=== PATIENT | female | born 1965 | race Caucasian/White ===

== ENCOUNTER 2019-12-11 07:04 | Outpatient (REF) | payer MEDICARE, MEDICAID, SELFPAY ==
[2019-12-11 08:17] LABS: Alanine Aminotransferase 21 U/L (0-31); Albumin Level 4.1 g/dL (3.5-5.0); Alkaline Phosphatase 55 U/L (39-117); Aspartate Amino Transferase 24 U/L (5-31); Bilirubin Direct 0.2 mg/dL (0.0-0.5); Bilirubin Total 0.4 mg/dL (0.0-1.0); Cholesterol 237 mg/dL; HDL Cholesterol 76 mg/dL; LDL Cholesterol Calculated 144 mg/dl; Total Protein 7.3 g/dL (6.5-8.0); Triglycerides 87 mg/dL
== END 2019-12-11 07:05 | disposition home or self-care (01) ==
LOC: HO.LAB 07:04
DX: E78.5 Hyperlipidemia, unspecified (principal)
CPT/HCPCS: 80061; 80076

== ENCOUNTER → 2020-04-18 12:40 | Outpatient (BNVA) | payer MEDICARE, MEDICAID, SELFPAY | PROVIDERS: PCP Internal Medicine; Visit Provider Obstetrics & Gynecology | DX: N95.1 Menopausal and female climacteric states (principal) | CPT/HCPCS: 99202 ==

== ENCOUNTER 2020-07-08 06:51 | Outpatient (REF) | payer MEDICARE, MEDICAID, SELFPAY ==
[2020-07-08 07:39] LABS: MANUAL DIFF FLAG NO
[2020-07-08 07:48] LABS: Basophils Percent Auto 0.5 % (0-2); Eosinophils Absolute Auto 0.2 X10*3/uL (0.0-0.4); Eosinophils Percent Auto 2.8 % (0-4); Hematocrit 38.4 % (37-47); Hemoglobin 12.8 g/dl (12.0-16.0); Imm Gran Abs Auto 0.02 X10*3/uL (0.00-0.03); Imm Gran Pct Auto 0.3 % (0.0-0.4); Lymphocytes Absolute Auto 1.6 X10*3/uL (1.2-4.9); Lymphocytes Percent Auto 25.3 % (20-40); Mean Corpuscular HGB Conc 33.3 g/dl (31.0-35.0); Mean Corpuscular Hemoglobin 30.5 pg (27.0-33.0); Mean Corpuscular Volume 91.6 fL (80-98); Mean Platelet Volume 11.5 fL (9.4-12.3); Monocytes Absolute Auto 0.4 X10*3/uL (0.1-1.2); Monocytes Percent Auto 5.6 % (2-11); Neutrophils Absolute Auto 4.3 X10*3/uL (2.0-8.3); Neutrophils Percent Auto 65.5 % (45-73); Platelet Count 227 X10*3/uL (160-400); Red Blood Count 4.19 X10*6/uL (4.20-5.50); Red Cell Distribution Width 12.9 % (11.0-16.0); White Blood Count 6.5 X10*3/uL (4.8-10.8)
[2020-07-08 08:09] LABS: Alanine Aminotransferase 23 U/L (0-31); Albumin Level 4.2 g/dL (3.5-5.0); Alkaline Phosphatase 61 U/L (39-117); Anion Gap 14 (12-20); Aspartate Amino Transferase 24 U/L (5-31); Bilirubin Total 0.6 mg/dL (0.0-1.0); Blood Urea Nitrogen 20 mg/dL (9-16); Calcium 9.2 mg/dL (8.4-10.2); Carbon Dioxide 24 mmol/L (22-29); Chloride 106 mmol/L (96-108); Cholesterol 177 mg/dL; Estimated Glomerular Filt Rate > 60; Glucose Fasting 97 mg/dL (60-99); HDL Cholesterol 85 mg/dL; LDL Cholesterol Calculated 79 mg/dl; Potassium 3.9 mmol/L (3.3-5.1); Sodium 140 mmol/L (135-145); Total Protein 7.1 g/dL (6.5-8.0); Triglycerides 67 mg/dL
[2020-07-08 08:16] LABS: Vitamin D 25-OH Total 52.5 ng/mL (>30)
[2020-07-08 08:21] LABS: Thyroid Stimulating Hormone 0.79 uIU/mL (0.32-4.0)
== END 2020-07-08 06:52 | disposition home or self-care (01) ==
LOC: HO.LAB 06:51
PROVIDERS: Absent Provider Internal Medicine Addiction Medicine; PCP Internal Medicine; Visit Provider Internal Medicine
DX: Z00.00 Encounter for general adult medical examination without abnormal findings (principal); M79.7 Fibromyalgia; E03.9 Hypothyroidism, unspecified; E11.9 Type 2 diabetes mellitus without complications
CPT/HCPCS: 36415; 80053; 80061; 82306; 84443; 85025

== ENCOUNTER 2020-08-19 08:15 | Outpatient (REF) | payer MEDICARE, MEDICAID, SELFPAY ==
[2020-08-24 21:06] LABS: HPV mRNA E6/E7 rflx Not Detected (Not Detected)
== END 2020-08-19 08:16 | disposition home or self-care (01) ==
LOC: HO.LAB 08:15
PROVIDERS: PCP Internal Medicine; Visit Provider Obstetrics & Gynecology
DX: Z01.419 Encounter for gynecological examination (general) (routine) without abnormal findings (principal); N95.1 Menopausal and female climacteric states; Z87.891 Personal history of nicotine dependence
CPT/HCPCS: 87624; 88142

== ENCOUNTER → 2021-05-30 07:43 | Outpatient (BNVA) | payer MEDICARE, MEDICAID, SELFPAY | PROVIDERS: PCP Internal Medicine; Visit Provider Internal Medicine Endocrinology, Diabetes & Metabolism | DX: E66.9 Obesity, unspecified (principal); Z68.30 Body mass index [BMI] 30.0-30.9, adult | CPT/HCPCS: 99202 ==

== ENCOUNTER 2021-06-02 07:22 | Outpatient (REF) | payer MEDICARE, MEDICAID, SELFPAY ==
[2021-06-02 08:28] LABS: Anion Gap 14 (12-20); Blood Urea Nitrogen 17 mg/dL (9-16); Calcium 9.6 mg/dL (8.4-10.2); Carbon Dioxide 25 mmol/L (22-29); Chloride 103 mmol/L (96-108); Cholesterol 160 mg/dL; Estimated Glomerular Filt Rate > 60; Glucose Random 86 mg/dL (60-115); HDL Cholesterol 71 mg/dL; LDL Cholesterol Calculated 68 mg/dl; Potassium 4.1 mmol/L (3.3-5.1); Sodium 138 mmol/L (135-145); Triglycerides 105 mg/dL
[2021-06-02 08:52] LABS: Free T4 (Free Thyroxine) 1.03 ng/dL (0.71-1.85); Thyroid Stimulating Hormone 1.39 uIU/mL (0.32-4.0)
== END 2021-06-02 07:23 | disposition home or self-care (01) ==
LOC: HO.LAB 07:22
PROVIDERS: PCP Internal Medicine; Visit Provider Internal Medicine Endocrinology, Diabetes & Metabolism
DX: Z00.00 Encounter for general adult medical examination without abnormal findings (principal); E66.9 Obesity, unspecified
CPT/HCPCS: 36415; 80048; 80061; 84439; 84443

== ENCOUNTER → 2021-09-26 08:47 | Outpatient (BNVA) | payer MEDICARE, MEDICAID, SELFPAY | PROVIDERS: PCP Internal Medicine; Visit Provider Internal Medicine Endocrinology, Diabetes & Metabolism | DX: E66.9 Obesity, unspecified (principal) | CPT/HCPCS: 99212 ==

== ENCOUNTER 2022-05-16 08:27 | Outpatient (REF) | payer MEDICARE, MEDICAID, SELFPAY ==
[2022-05-16 10:03] LABS: Free T4 (Free Thyroxine) 1.14 ng/dL (0.71-1.85); Thyroid Stimulating Hormone 1.33 uIU/mL (0.32-4.0)
[2022-05-18 03:34] LABS: Triiodothyronine T3 Free 3.7 pg/mL (2.3-4.2)
== END 2022-05-16 08:28 | disposition home or self-care (01) ==
LOC: HO.LAB 08:27
PROVIDERS: PCP Internal Medicine; Visit Provider Internal Medicine
DX: E03.9 Hypothyroidism, unspecified (principal)
CPT/HCPCS: 36415; 84439; 84443; 84481

== ENCOUNTER 2022-11-02 08:40 | Outpatient (AMB) | payer MEDICARE, MEDICAID, SELFPAY ==
[2022-11-02 08:41] VITALS: BP 152/90; PULSE 85; BMI 32.1
--- NOTE | 2022-11-02 08:41 | MHC.PC.OV ---
Vital Signs 11/02/22 08:41 Height 5 ft 4 in Weight 187 lb BMI 32.1 BP 152/90 H Blood Pressure Location Lt brachial Position Sitting Pulse 85 Pulse Source Pulse Oximeter Oxygen Delivery Method Room Air Intake Visit Reasons: 6 month f/u Allergies Clindamycin HCl Allergy (Unknown, Uncoded 11/02/22 08:42) unknown dust Allergy (Unknown, Uncoded 11/02/22 08:42) unknown Medication List - Last Reconciled 11/02/22 by Jay Jarquin MD aspirin 81 mg PO DAILY atorvastatin 20 mg PO DAILY estradiol 0.5 mg PO DAILY hydrochlorothiazide 25 mg PO DAILY levothyroxine (Synthroid) 25 mcg PO DAILY metoprolol succinate ER 50 mg PO DAILY oxycodone 10 mg PO BID PRN oxycodone ER 20 mg PO Q12H Tobacco use date assessed: 08/17/22 Dental Screening Dental Screen Date: 11/02/22 Did you have a dental visit in the last 12 months?: Yes Did you have a dental problem in the last 6 months where you did not have access to dental care?: No Was dental information given to patient?: Patient has dentist HPI 6 month f/u HPI Details htn hyperlipidemia and chronic back pain; still overly obsessed with her weight PFSH Medical History Menopause Obesity Hyperlipidemia High cholesterol High blood pressure Fibromyalgia Back pain Surgical History No pertinent past surgical history Family History Father No problems noted. Mother No problems noted. Social History Housing: Condominium Alcohol intake: never Patient Tobacco Use Status: Former Tobacco user Tobacco use type: Cigarette e-Cigarette/Vaping Use: Never Used Second Hand Smoke Exposure: No service: No Current occupational status: disabled Gender identity: Female Cognitive needs: No Hearing needs: No Vision needs: No Questionnaire PHQ-9 Over the last 2 weeks, how often have you been bothered by any of the following problems? 1. Little interest or pleasure in doing things: not at all 2. Feeling down, depressed, or hopeless: not at all 3. Trouble falling or staying asleep, or sleeping too much: not at all 4. Feeling tired or having little energy: not at all 5. Poor appetite or overeating: not at all 6. Feeling bad about yourself - or that you are a failure or have let yourself or your family down: not at all 7. Trouble concentrating on things, such as reading the newspaper or watching television: not at all 8. Moving or speaking so slowly that other people could have noticed. Or the opposite - being so fidgety or restless that you have been moving around a lot more than usual: not at all 9. Thoughts that you would be better off or of hurting yourself in some way: not at all Total score: 0 Depression Screening Interpretation: Negative Source: Developed by Drs. Madhu Spear, Cyndi Lizarraga, Robby Bonilla and colleagues, with an educational tim from [employer]. Thrive Questionnaire Date Thrive assessed: 05/04/22 AUDIT C Alcohol Use Questionnaire (AUDIT-C) 1. How often do you have a drink containing alcohol?: Never Total Score: 0 Score Reviewed/Action Taken: Yes ARIANNE-7 AMB Questionnaire ARIANNE-7 Date ARIANNE - 7 assessed: 05/04/22 Source: Developed by Drs. Madhu Spear, Cyndi Lizarraga, Robby Bonilla and colleagues, with an educational tim from [employer]. Review of Systems Const Denies chills, Denies headache(s) and Denies weight loss ENT Denies headache(s) Card Denies chest pain, Denies syncope, Denies irregular heart rhythm and Denies dyspnea Resp Denies chest congestion, Denies cough and Denies dyspnea GI Denies abdominal pain, Denies change in stool character, Denies nausea and Denies vomiting Musc Denies deformity and Denies joint swelling Neuro Denies syncope and Denies headache(s) Physical exam (Primary Care) Vital Signs: Last Vital Signs Pulse 85 11/02/22 08:41 BP 152/90 H 11/02/22 08:41 Oxygen Delivery Method Room Air 11/02/22 08:41 BMI result Body Mass Index 32.1 Tobacco/Smoking Status: Tobacco use Status Tobacco use date assessed 08/17/22 11/02/22 08:46 Patient Tobacco Use Status Former Tobacco user 11/02/22 08:46 Tobacco use type Cigarette 11/02/22 08:46 e-Cigarette/Vaping Use Never Used 11/02/22 08:46 PHQ-9: PHQ-9 Score PHQ-9: Total score 0 11/02/22 08:46 Depression Screening Interpretation: Negative Thrive Assessment: Date of Thrive Assessment Date Thrive assessed 05/04/22 11/02/22 08:46 Const General: cooperative, comfortable, no acute distress and alert Neck Neck: Yes no lymphadenopathy Thyroid: Thyroid normal Resp Effort & Inspection: normal respiratory effort Auscultation: clear to auscultation bilaterally Percussion: percussion normal Cardio Jugular venous distension: no JVD Palpation: normal PMI Rate: regular rate Rhythm: regular rhythm Heart sounds: S1 normal heart sound present and S2 normal heart sound present GI Inspection: Yes normal to inspection Palpation (GI): No hepatosplenomegaly present Skin General skin exam: no rashes or lesions noted Extrem General: Yes no clubbing, cyanosis or edema Assessment and Plan Assessment & Plan (1) Hypertension: Code(s): I10 - Essential (primary) hypertension Plan: same rx (2) Hyperlipidemia: Code(s): E78.5 - Hyperlipidemia, unspecified Plan: stable; do labs (3) Pain management: Code(s): R52 - Pain, unspecified Plan: as per PSP Orders: Orders Complete Blood Count Auto Diff Today D64.9 - Anemia, unspecified Comprehensive [place]. Panel Fast Today N28.9 - Disorder of kidney and ureter, unspecified Lipid Panel Today E78.5 - Hyperlipidemia, unspecified Medications: Discontinued levothyroxine (Synthroid) Discontinued Reason: None 25 mcg PO DAILY 90 tabs 1RF Coding Level of Care Code Est Pt Level 4 (83084) Diagnoses Hypertension I10 Hyperlipidemia E78.5 Pain management R52
== END 2022-11-02 09:07 | disposition home or self-care (01) ==
PROVIDERS: PCP Internal Medicine; Visit Provider Internal Medicine
DX: I10 Essential (primary) hypertension (principal); E78.5 Hyperlipidemia, unspecified; R52 Pain, unspecified
CPT/HCPCS: 99214

== ENCOUNTER 2022-11-20 06:25 | Outpatient (REF) | payer MEDICARE, MEDICAID, SELFPAY ==
[2022-11-20 06:38] LABS: MANUAL DIFF FLAG NO
[2022-11-20 07:24] LABS: Basophils Absolute Auto 0.1 X10*3/uL (0.0-0.2); Basophils Percent Auto 0.9 % (0-2); Eosinophils Absolute Auto 0.2 X10*3/uL (0.0-0.4); Eosinophils Percent Auto 3.7 % (0-4); Hemoglobin 13.1 g/dl (12.0-16.0); Imm Gran Abs Auto 0.02 X10*3/uL (0.00-0.03); Imm Gran Pct Auto 0.4 % (0.0-0.4); Lymphocytes Absolute Auto 2.3 X10*3/uL (1.2-4.9); Lymphocytes Percent Auto 40.5 % (20-40); Mean Corpuscular HGB Conc 33.6 g/dl (31.0-35.0); Mean Corpuscular Hemoglobin 30.3 pg (27.0-33.0); Mean Corpuscular Volume 90.1 fL (80.0-98.0); Mean Platelet Volume 10.1 fL (9.4-12.3); Monocytes Absolute Auto 0.5 X10*3/uL (0.1-1.2); Monocytes Percent Auto 8.2 % (2-11); Neutrophils Absolute Auto 2.6 x10*3/uL (2.0-8.3); Neutrophils Percent Auto 46.3 % (45-73); Platelet Count 280 X10*3/uL (160-400); Red Blood Count 4.33 X10*6/uL (4.20-5.50); Red Cell Distribution Width 12.9 % (11.0-16.0); White Blood Count 5.6 X10*3/uL (4.8-10.8)
[2022-11-20 07:42] LABS: Alanine Aminotransferase 22 U/L (0-31); Albumin Level 4.4 g/dL (3.5-5.0); Alkaline Phosphatase 64 U/L (39-117); Anion Gap 15 (12-20); Aspartate Amino Transferase 25 U/L (5-31); Bilirubin Total 0.4 mg/dL (0.0-1.0); Blood Urea Nitrogen 20 mg/dL (9-16); Calcium 9.8 mg/dL (8.4-10.2); Carbon Dioxide 24 mmol/L (22-29); Chloride 100 mmol/L (96-108); Cholesterol 171 mg/dL (<200); Estimated Glomerular Filt Rate > 60; Glucose Fasting 97 mg/dL (60-99); HDL Cholesterol 76 mg/dL (>40); LDL Cholesterol Calculated 83 mg/dL (<100); Potassium 3.4 mmol/L (3.3-5.1); Sodium 136 mmol/L (135-145); Total Protein 7.8 g/dL (6.5-8.0); Triglycerides 60 mg/dL (<150)
== END 2022-11-20 06:26 | disposition home or self-care (01) ==
LOC: HO.LAB 06:25
PROVIDERS: PCP Internal Medicine; Visit Provider Internal Medicine
DX: D64.9 Anemia, unspecified (principal); N28.9 Disorder of kidney and ureter, unspecified; E78.5 Hyperlipidemia, unspecified
CPT/HCPCS: 36415; 80053; 80061; 85025

== ENCOUNTER 2023-05-10 09:31 | Outpatient (AMB) | payer MEDICARE, MEDICAID, SELFPAY ==
[2023-05-10 09:34] VITALS: BP 142/80; PULSE 72; O2SAT 98; BMI 31.2
--- NOTE | 2023-05-10 09:34 | A.OFFPC_ITS ---
Vital Signs 05/10/23 09:34 Height 5 ft 4 in Weight 182 lb BMI 31.2 BP 142/80 H Blood Pressure Location Lt brachial Position Sitting Pulse 72 Pulse Source Pulse Oximeter Pulse Oximetry (%) 98 Oxygen Delivery Method Room Air Intake Visit Reasons: 6 month follow up Overnight Babysitter Required: No Gauge Controller: Not Required per policy Accompanied by: Self / Same As Patient Allergies Clindamycin HCl Allergy (Unknown, Uncoded 05/10/23 09:35) unknown dust Allergy (Unknown, Uncoded 05/10/23 09:35) unknown Medication List - Last Reconciled 05/10/23 by Jay Jarquin MD aspirin 81 mg PO DAILY atorvastatin 20 mg PO DAILY estradiol 0.5 mg PO DAILY hydrochlorothiazide 25 mg PO DAILY metoprolol succinate ER 50 mg PO DAILY oxycodone 10 mg PO BID PRN oxycodone ER 20 mg PO Q12H progesterone micronized 200 mg PO BEDTIME Tobacco use date assessed: 05/10/23 Dental Screening Dental Screen Date: 05/10/23 Did you have a dental visit in the last 12 months?: Yes Did you have a dental problem in the last 6 months where you did not have access to dental care?: No Was dental information given to patient?: Patient has dentist HPI 6 month follow up HPI Details HTN on Rx; doing well and compliant [facility] Medical History Menopause Obesity Hyperlipidemia High cholesterol High blood pressure Fibromyalgia Back pain Surgical History No pertinent past surgical history Family History Father No problems noted. Mother No problems noted. Social History Housing: Condominium Alcohol intake: never Patient Tobacco Use Status: Former Tobacco user Tobacco use type: Cigarette e-Cigarette/Vaping Use: Never Used Second Hand Smoke Exposure: No service: No Current occupational status: disabled Gender identity: Female Cognitive needs: No Hearing needs: No Vision needs: No Questionnaire PHQ-9 Over the last 2 weeks, how often have you been bothered by any of the following problems? 1. Little interest or pleasure in doing things: not at all 2. Feeling down, depressed, or hopeless: not at all 3. Trouble falling or staying asleep, or sleeping too much: not at all 4. Feeling tired or having little energy: not at all 5. Poor appetite or overeating: not at all 6. Feeling bad about yourself - or that you are a failure or have let yourself or your family down: not at all 7. Trouble concentrating on things, such as reading the newspaper or watching television: not at all 8. Moving or speaking so slowly that other people could have noticed. Or the opposite - being so fidgety or restless that you have been moving around a lot more than usual: not at all 9. Thoughts that you would be better off or of hurting yourself in some way: not at all Total score: 0 Depression Screening Interpretation: Negative Depression Screening Done: Yes Source: Developed by Drs. Madhu Spear, Cyndi Lizarraga, Robby Bonilla and colleagues, with an educational tim from [employer]. Thrive Questionnaire Date Thrive assessed: 05/10/23 I am a: Patient What is your living situation today?: I have a steady place to live Within the past 12 months, did the food you bought not last and you didn't have the money to get more?: Never true Within the past 12 months, did you worry whether your food would run out before you got money to buy more?: Never true Do you have trouble paying for medicines?: No Do you have trouble getting transportation to medical appointments?: No Do you have trouble paying your heating and electricity bill?: No Do you have trouble taking care of your child, family member or friend?: No Do you have trouble with day-to-day activities such as bathing, preparing meals, shopping, managing finances, etc.?: No Are you currently unemployed and looking for a job?: No Are you interested in more education?: No Please select the resources that you would like help with: None THRIVE Score: 0 AUDIT C Alcohol Use Questionnaire (AUDIT-C) 1. How often do you have a drink containing alcohol?: Never Total Score: 0 Score Reviewed/Action Taken: Yes ARIANNE-7 AMB Questionnaire ARIANNE-7 Date ARIANNE - 7 assessed: 03/22/24 Feeling nervous, anxious, or on edge: 0 = Not at all Not being able to stop or control worryin = Not at all Worrying too much about different things: 0 = Not at all Trouble relaxin = Not at all Being so restless that it is hard to sit still: 0 = Not at all Becoming easily annoyed or irritable: 0 = Not at all Feeling afraid as if something awful might happen: 0 = Not at all Total ARIANNE-7 score (0-4 normal; 5-9 mild; 10-14 moderate; 15-21 severe): 0 Source: Developed by Drs. Madhu Spear, Cyndi Lizarraga, Robby Bonilla and colleagues, with an educational tim from [employer]. ARIANNE-7 Assessment Billing ARIANNE-7 Assessment Tool: ARIANNE-7 Assessment 18929 Review of Systems Const Denies chills, Denies headache(s) and Denies weight loss ENT Denies headache(s) Card Denies chest pain, Denies syncope, Denies irregular heart rhythm and Denies dyspnea Resp Denies chest congestion, Denies cough and Denies dyspnea GI Denies abdominal pain, Denies change in stool character, Denies nausea and Denies vomiting Musc Denies deformity and Denies joint swelling Neuro Denies syncope and Denies headache(s) Physical exam (Primary Care) Vital Signs: Last Vital Signs Pulse 72 05/10/23 09:34 BP 142/80 H 05/10/23 09:34 Pulse Ox 98 05/10/23 09:34 Oxygen Delivery Method Room Air 05/10/23 09:34 BMI result Body Mass Index 31.2 Tobacco/Smoking Status: Tobacco use Status Tobacco use date assessed 05/10/23 05/10/23 09:35 Patient Tobacco Use Status Former Tobacco user 05/10/23 09:35 Tobacco use type Cigarette 05/10/23 09:35 e-Cigarette/Vaping Use Never Used 05/10/23 09:35 PHQ-9: PHQ-9 Score PHQ-9: Total score 0 05/10/23 09:35 Depression Screening Interpretation: Negative Thrive Assessment: Date of Thrive Assessment Date Thrive assessed 05/10/23 05/10/23 09:35 Const General: cooperative, comfortable, no acute distress and alert Neck Neck: Yes no lymphadenopathy Thyroid: Thyroid normal Resp Effort & Inspection: normal respiratory effort Auscultation: clear to auscultation bilaterally Percussion: percussion normal Cardio Jugular venous distension: no JVD Palpation: normal PMI Rate: regular rate Rhythm: regular rhythm Heart sounds: S1 normal heart sound present and S2 normal heart sound present GI Inspection: Yes normal to inspection Palpation (GI): No hepatosplenomegaly present Skin General skin exam: no rashes or lesions noted Extrem General: Yes no clubbing, cyanosis or edema Assessment and Plan Assessment & Plan (1) Hypertension: Code(s): I10 - Essential (primary) hypertension Plan: stable; same rx Orders: Orders Comprehensive [place]. Panel Fast Today N28.9 - Disorder of kidney and ureter, unspecified Lipid Panel Today E78.5 - Hyperlipidemia, unspecified Coding Level of Care Code Est Pt Level 3 (02696) Diagnoses Hypertension I10 Additional Codes ARIANNE-7 Assessment Billing - ARIANNE-7 Assessment Tool: ARIANNE-7 Assessment 50233 ([id number])
== END 2023-05-10 10:12 | disposition home or self-care (01) ==
PROVIDERS: PCP Internal Medicine; Visit Provider Internal Medicine
DX: I10 Essential (primary) hypertension (principal)
CPT/HCPCS: 99213

== ENCOUNTER 2023-09-26 06:56 | Outpatient (REF) | payer MEDICARE, MEDICAID, SELFPAY ==
[2023-09-26 08:06] LABS: Alanine Aminotransferase 23 U/L (0-31); Albumin Level 4.6 g/dL (3.5-5.0); Alkaline Phosphatase 55 U/L (39-117); Anion Gap 15 (12-20); Aspartate Amino Transferase 27 U/L (5-31); Bilirubin Total 0.6 mg/dL (0.0-1.0); Blood Urea Nitrogen 18 mg/dL (9-16); Calcium 10.3 mg/dL (8.4-10.2); Carbon Dioxide 26 mmol/L (22-29); Chloride 102 mmol/L (96-108); Cholesterol 178 mg/dL (<200); Estimated Glomerular Filt Rate > 60; Glucose Fasting 99 mg/dL (60-99); HDL Cholesterol 68 mg/dL (>40); LDL Cholesterol Calculated 96 mg/dL (<100); Potassium 3.5 mmol/L (3.3-5.1); Sodium 139 mmol/L (135-145); Total Protein 8.4 g/dL (6.5-8.0); Triglycerides 71 mg/dL (<150)
== END 2023-09-26 06:57 | disposition home or self-care (01) ==
LOC: HO.LAB 06:56
PROVIDERS: PCP Internal Medicine; Visit Provider Internal Medicine
DX: N28.9 Disorder of kidney and ureter, unspecified (principal); E78.5 Hyperlipidemia, unspecified
CPT/HCPCS: 36415; 80053; 80061

== ENCOUNTER 2023-10-02 10:09 | Outpatient (AMB) | payer MEDICARE, MEDICAID, SELFPAY ==
[2023-10-02 10:11] VITALS: BP 160/82; PULSE 82; O2SAT 97; BMI 32.8
--- NOTE | 2023-10-02 10:11 | A.OFFPC_ITS ---
Vital Signs 10/02/23 10:11 Height 5 ft 4 in Weight 191 lb BMI 32.8 BP 160/82 H Blood Pressure Location Lt brachial Position Sitting Pulse 82 Pulse Source Pulse Oximeter Pulse Oximetry (%) 97 Oxygen Delivery Method Room Air Intake Visit Reasons: BP- monitor Intake Note: Pt saw her computer specialist on 09/25/23 and reports a BP of 171/95 and 150/85 about 20 minutes after that. Allergies Clindamycin HCl Allergy (Unknown, Uncoded 10/02/23 10:12) unknown dust Allergy (Unknown, Uncoded 10/02/23 10:12) unknown Medication List - Last Reconciled 10/02/23 by Jay Jarquin MD aspirin 81 mg PO DAILY atorvastatin 20 mg PO DAILY hydrochlorothiazide 25 mg PO DAILY metoprolol succinate ER 50 mg PO DAILY norethindrone ac-eth estradiol 1-5 mg-mcg (Fyavolv) 1 tab PO DAILY oxycodone ER 20 mg PO Q12H Tobacco use date assessed: 05/10/23 Dental Screening Dental Screen Date: 05/10/23 HPI BP- monitor HPI Details BP has been 170s; compliant with rx [facility] Medical History Menopause Obesity Hyperlipidemia High cholesterol High blood pressure Fibromyalgia Back pain Surgical History No pertinent past surgical history Family History Father No problems noted. Mother No problems noted. Social History Housing: Condominium Alcohol intake: never Patient Tobacco Use Status: Former Tobacco user Tobacco use type: Cigarette e-Cigarette/Vaping Use: Never Used Second Hand Smoke Exposure: No service: No Current occupational status: disabled Gender identity: Female Cognitive needs: No Hearing needs: No Vision needs: No Questionnaire PHQ-9 Over the last 2 weeks, how often have you been bothered by any of the following problems? 1. Little interest or pleasure in doing things: not at all 2. Feeling down, depressed, or hopeless: not at all 3. Trouble falling or staying asleep, or sleeping too much: not at all 4. Feeling tired or having little energy: not at all 5. Poor appetite or overeating: not at all 6. Feeling bad about yourself - or that you are a failure or have let yourself or your family down: not at all 7. Trouble concentrating on things, such as reading the newspaper or watching television: not at all 8. Moving or speaking so slowly that other people could have noticed. Or the opposite - being so fidgety or restless that you have been moving around a lot more than usual: not at all 9. Thoughts that you would be better off or of hurting yourself in some way: not at all Total score: 0 Depression Screening Interpretation: Negative Depression Screening Done: Yes Source: Developed by Drs. Madhu Spear, Cyndi Lizarraga, Robby Bonilla and colleagues, with an educational tim from [employer]. Thrive Questionnaire Date Thrive assessed: 05/10/23 ARIANNE-7 AMB Questionnaire ARIANNE-7 Date ARIANNE - 7 assessed: 05/10/23 Source: Developed by Drs. Madhu Spear, Cyndi Lizarraga, Robby Bonilla and colleagues, with an educational tim from [employer]. Review of Systems Const Denies chills, Denies headache(s) and Denies weight loss ENT Denies headache(s) Card Denies chest pain, Denies syncope, Denies irregular heart rhythm and Denies dyspnea Resp Denies chest congestion, Denies cough and Denies dyspnea GI Denies abdominal pain, Denies change in stool character, Denies nausea and Denies vomiting Musc Denies deformity and Denies joint swelling Neuro Denies syncope and Denies headache(s) Physical exam (Primary Care) Vital Signs: Last Vital Signs Pulse 82 10/02/23 10:11 BP 160/82 H 10/02/23 10:11 Pulse Ox 97 10/02/23 10:11 Oxygen Delivery Method Room Air 10/02/23 10:11 BMI result Body Mass Index 32.8 Tobacco/Smoking Status: Tobacco use Status Tobacco use date assessed 05/10/23 10/02/23 10:11 Patient Tobacco Use Status Former Tobacco user 10/02/23 10:11 Tobacco use type Cigarette 10/02/23 10:11 e-Cigarette/Vaping Use Never Used 10/02/23 10:11 PHQ-9: PHQ-9 Score PHQ-9: Total score 0 10/02/23 10:20 Depression Screening Interpretation: Negative Thrive Assessment: Date of Thrive Assessment Date Thrive assessed 05/10/23 10/02/23 10:11 Const General: cooperative, comfortable, no acute distress and alert Neck Neck: Yes no lymphadenopathy Thyroid: Thyroid normal Resp Effort & Inspection: normal respiratory effort Auscultation: clear to auscultation bilaterally Percussion: percussion normal Cardio Jugular venous distension: no JVD Palpation: normal PMI Rate: regular rate Rhythm: regular rhythm Heart sounds: S1 normal heart sound present and S2 normal heart sound present GI Inspection: Yes normal to inspection Palpation (GI): No hepatosplenomegaly present Skin General skin exam: no rashes or lesions noted Extrem General: Yes no clubbing, cyanosis or edema Assessment and Plan Assessment & Plan (1) Hypertension: Code(s): I10 - Essential (primary) hypertension Plan: increase metoprolol to 100mg Medications: New metoprolol succinate ER 100 mg PO DAILY 90 tabs 3RF Coding Level of Care Code Est Pt Level 3 (99409) Diagnoses Hypertension I10
== END 2023-10-02 11:33 | disposition home or self-care (01) ==
PROVIDERS: PCP Internal Medicine; Visit Provider Internal Medicine
DX: I10 Essential (primary) hypertension (principal)
CPT/HCPCS: 99213

== ENCOUNTER 2023-11-13 08:12 | Outpatient (AMB) | payer MEDICARE, MEDICAID, SELFPAY ==
[2023-11-13 08:28] VITALS: BP 144/92; PULSE 75; O2SAT 95; BMI 32.6
--- NOTE | 2023-11-13 08:28 | MHC.PC.OV ---
Vital Signs 11/13/23 08:28 Height 5 ft 4 in Weight 190 lb BMI 32.6 BP 144/92 H Blood Pressure Location Lt brachial Position Sitting Pulse 75 Pulse Source Pulse Oximeter Pulse Oximetry (%) 95 Oxygen Delivery Method Room Air Intake Visit Reasons: 6 Month F/U - due for colonoscopy? [employer] Consultant Required: No Accompanied by: Self / Same As Patient Allergies Clindamycin HCl Allergy (Unknown, Uncoded 11/13/23 08:31) unknown dust Allergy (Unknown, Uncoded 11/13/23 08:31) unknown Medication List - Last Reconciled 11/13/23 by Jay Jarquin MD aspirin 81 mg PO DAILY atorvastatin 20 mg PO DAILY hydrochlorothiazide 25 mg PO DAILY metoprolol succinate ER 50 mg PO DAILY metoprolol succinate ER 100 mg PO DAILY norethindrone ac-eth estradiol 1-5 mg-mcg (Fyavolv) 1 tab PO DAILY oxycodone ER 20 mg PO Q12H Tobacco use date assessed: 05/10/23 Dental Screening Dental Screen Date: 05/10/23 HPI 6 Month F/U - due for colonoscopy? HPI Details HTN on Rx; doing well; compliant [facility] Medical History Menopause Obesity Hyperlipidemia High cholesterol High blood pressure Fibromyalgia Back pain Surgical History No pertinent past surgical history Family History Father No problems noted. Mother No problems noted. Social History Housing: Condominium Alcohol intake: never Patient Tobacco Use Status: Former Tobacco user Tobacco use type: Cigarette e-Cigarette/Vaping Use: Never Used Second Hand Smoke Exposure: No service: No Current occupational status: disabled Gender identity: Female Cognitive needs: No Hearing needs: No Vision needs: No Questionnaire PHQ-9 Over the last 2 weeks, how often have you been bothered by any of the following problems? 1. Little interest or pleasure in doing things: not at all 2. Feeling down, depressed, or hopeless: not at all 3. Trouble falling or staying asleep, or sleeping too much: not at all 4. Feeling tired or having little energy: not at all 5. Poor appetite or overeating: not at all 6. Feeling bad about yourself - or that you are a failure or have let yourself or your family down: not at all 7. Trouble concentrating on things, such as reading the newspaper or watching television: not at all 8. Moving or speaking so slowly that other people could have noticed. Or the opposite - being so fidgety or restless that you have been moving around a lot more than usual: not at all 9. Thoughts that you would be better off or of hurting yourself in some way: not at all Total score: 0 Depression Screening Interpretation: Negative Depression Screening Done: Yes Source: Developed by Drs. Madhu Spear, Cyndi Lizarraga, Robby Bonilla and colleagues, with an educational tim from [employer]. Thrive Questionnaire Date Thrive assessed: 05/10/23 Are you currently unemployed and looking for a job?: No AUDIT C Alcohol Use Questionnaire (AUDIT-C) 1. How often do you have a drink containing alcohol?: Never 3. How often do you have six or more drinks on one occasion?: Never Total Score: 0 Score Reviewed/Action Taken: Yes ARIANNE-7 AMB Questionnaire ARIANNE-7 Date ARIANNE - 7 assessed: 05/10/23 Source: Developed by Drs. Madhu Spear, Cyndi Lizarraga, Robby Bonilla and colleagues, with an educational itm from [employer]. Review of Systems Const Denies chills, Denies headache(s) and Denies weight loss ENT Denies headache(s) Card Denies chest pain, Denies syncope, Denies irregular heart rhythm and Denies dyspnea Resp Denies chest congestion, Denies cough and Denies dyspnea GI Denies abdominal pain, Denies change in stool character, Denies nausea and Denies vomiting Musc Denies deformity and Denies joint swelling Neuro Denies syncope and Denies headache(s) Physical exam (Primary Care) Vital Signs: Last Vital Signs Pulse 75 11/13/23 08:28 BP 144/92 H 11/13/23 08:28 Pulse Ox 95 11/13/23 08:28 Oxygen Delivery Method Room Air 11/13/23 08:28 BMI result Body Mass Index 32.6 Tobacco/Smoking Status: Tobacco use Status Tobacco use date assessed 05/10/23 11/13/23 08:36 Patient Tobacco Use Status Former Tobacco user 11/13/23 08:36 Tobacco use type Cigarette 11/13/23 08:36 e-Cigarette/Vaping Use Never Used 11/13/23 08:36 PHQ-9: PHQ-9 Score PHQ-9: Total score 0 11/13/23 08:38 Depression Screening Interpretation: Negative Thrive Assessment: Date of Thrive Assessment Date Thrive assessed 05/10/23 11/13/23 08:36 Const General: cooperative, comfortable, no acute distress and alert Neck Neck: Yes no lymphadenopathy Thyroid: Thyroid normal Resp Effort & Inspection: normal respiratory effort Auscultation: clear to auscultation bilaterally Percussion: percussion normal Cardio Jugular venous distension: no JVD Palpation: normal PMI Rate: regular rate Rhythm: regular rhythm Heart sounds: S1 normal heart sound present and S2 normal heart sound present GI Inspection: Yes normal to inspection Palpation (GI): No hepatosplenomegaly present Skin General skin exam: no rashes or lesions noted Extrem General: Yes no clubbing, cyanosis or edema Assessment and Plan Assessment & Plan (1) Hypertension: Code(s): I10 - Essential (primary) hypertension Plan: stable; same rx; refuses colonoscopy and cologuard Coding Level of Care Code Est Pt Level 3 (31011) Diagnoses Hypertension I10
== END 2023-11-13 08:48 | disposition home or self-care (01) ==
PROVIDERS: PCP Internal Medicine; Visit Provider Internal Medicine
DX: I10 Essential (primary) hypertension (principal)

== ENCOUNTER → 2023-11-13 08:12 | Outpatient (BNVA) | payer MEDICARE, MEDICAID, SELFPAY | PROVIDERS: PCP Internal Medicine; Visit Provider Internal Medicine | DX: I10 Essential (primary) hypertension (principal) | CPT/HCPCS: 99212 ==

== ENCOUNTER 2024-04-15 09:27 | Outpatient (AMB) | payer MEDICARE, MEDICAID, SELFPAY ==
[2024-04-15 09:40] VITALS: BP 122/78; PULSE 71; O2SAT 98; BMI 34.6
--- NOTE | 2024-04-15 09:40 | A.OFFPC_ITS ---
Vital Signs 04/15/24 09:40 Height 5 ft 4 in Weight 201 lb 8 oz BMI 34.6 BP 122/78 Blood Pressure Location Lt brachial Position Sitting Pulse 71 Pulse Source Pulse Oximeter Pulse Oximetry (%) 98 Oxygen Delivery Method Room Air Intake Visit Reasons: 6 month f/u Buckler And Lacer Required: No Accompanied by: Self / Same As Patient Allergies Clindamycin HCl Allergy (Unknown, Uncoded 04/15/24 09:41) unknown dust Allergy (Unknown, Uncoded 04/15/24 09:41) unknown Medication List - Last Reconciled 04/16/24 by Jay Jarquin MD aspirin 81 mg PO DAILY atorvastatin 20 mg PO DAILY hydrochlorothiazide 25 mg PO DAILY metoprolol succinate ER 50 mg PO DAILY metoprolol succinate ER 100 mg PO DAILY noreth-ethinyl estradiol-iron 0.4mg-35mcg(21) and 75 mg (7) (Wymzya Fe) 1 tab PO DAILY norethindrone ac-eth estradiol 1-5 mg-mcg (Fyavolv) 1 tab PO DAILY oxycodone ER 20 mg PO Q12H Tobacco use date assessed: 04/15/24 Dental Screening Dental Screen Date: 04/15/24 HPI 6 month f/u HPI Details hypertension and hyperlipidemia on rx; doing well and compliant [facility] Medical History Menopause Obesity Hyperlipidemia High cholesterol High blood pressure Fibromyalgia Back pain Surgical History No pertinent past surgical history Family History Father No problems noted. Mother No problems noted. Social History Housing: Condominium Alcohol intake: never Patient Tobacco Use Status: Former Tobacco user Tobacco use type: Cigarette e-Cigarette/Vaping Use: Never Used Second Hand Smoke Exposure: No service: No Current occupational status: disabled Gender identity: Female Cognitive needs: No Hearing needs: No Vision needs: No Questionnaire PHQ-9 Over the last 2 weeks, how often have you been bothered by any of the following problems? 1. Little interest or pleasure in doing things: not at all 2. Feeling down, depressed, or hopeless: not at all 3. Trouble falling or staying asleep, or sleeping too much: not at all 4. Feeling tired or having little energy: not at all 5. Poor appetite or overeating: not at all 6. Feeling bad about yourself - or that you are a failure or have let yourself or your family down: not at all 7. Trouble concentrating on things, such as reading the newspaper or watching television: not at all 8. Moving or speaking so slowly that other people could have noticed. Or the opposite - being so fidgety or restless that you have been moving around a lot more than usual: not at all 9. Thoughts that you would be better off or of hurting yourself in some way: not at all Total score: 0 Depression Screening Interpretation: Negative Depression Screening Done: Yes Source: Developed by Drs. Madhu Spear, Cyndi Lizarraga, Robby Bonilla and colleagues, with an educational tim from [employer]. Thrive Questionnaire Date Thrive assessed: 04/15/24 I am a: Patient What is your living situation today?: I have a steady place to live Within the past 12 months, did the food you bought not last and you didn't have the money to get more?: Never true Within the past 12 months, did you worry whether your food would run out before you got money to buy more?: Never true Do you have trouble paying for medicines?: No Do you have trouble getting transportation to medical appointments?: No Do you have trouble paying your heating and electricity bill?: No Do you have trouble taking care of your child, family member or friend?: No Do you have trouble with day-to-day activities such as bathing, preparing meals, shopping, managing finances, etc.?: No Are you currently unemployed and looking for a job?: No Are you interested in more education?: No Please select the resources that you would like help with: None Currently or been in a relationship where the following occur: No concerns reported THRIVE Score: 0 AUDIT C Alcohol Use Questionnaire (AUDIT-C) 1. How often do you have a drink containing alcohol?: Never 2. How many drinks containing alcohol do you have on a typical day when you are drinking?: 1 or 2 3. How often do you have six or more drinks on one occasion?: Never Total Score: 0 ARIANNE-7 AMB Questionnaire ARIANNE-7 Date ARIANNE - 7 assessed: 04/15/24 Feeling nervous, anxious, or on edge: 0 = Not at all Not being able to stop or control worryin = Not at all Worrying too much about different things: 0 = Not at all Trouble relaxin = Not at all Being so restless that it is hard to sit still: 0 = Not at all Becoming easily annoyed or irritable: 0 = Not at all Feeling afraid as if something awful might happen: 0 = Not at all Total ARIANNE-7 score (0-4 normal; 5-9 mild; 10-14 moderate; 15-21 severe): 0 Source: Developed by Drs. Madhu Spear, Cyndi Lizarraga, Robby Bonilla and colleagues, with an educational tim from [employer]. Review of Systems Const Denies chills, Denies headache(s) and Denies weight loss ENT Denies headache(s) Card Denies chest pain, Denies syncope, Denies irregular heart rhythm and Denies dyspnea Resp Denies chest congestion, Denies cough and Denies dyspnea GI Denies abdominal pain, Denies change in stool character, Denies nausea and Denies vomiting Musc Denies deformity and Denies joint swelling Neuro Denies syncope and Denies headache(s) Physical exam (Primary Care) Vital Signs: Last Vital Signs Pulse 71 04/15/24 09:40 BP 122/78 04/15/24 09:40 Pulse Ox 98 04/15/24 09:40 Oxygen Delivery Method Room Air 04/15/24 09:40 BMI result Body Mass Index 34.6 Tobacco/Smoking Status: Tobacco use Status Tobacco use date assessed 04/15/24 04/15/24 09:49 Patient Tobacco Use Status Former Tobacco user 04/15/24 09:49 Tobacco use type Cigarette 04/15/24 09:49 e-Cigarette/Vaping Use Never Used 04/15/24 09:49 PHQ-9: PHQ-9 Score PHQ-9: Total score 0 04/15/24 09:49 Depression Screening Interpretation: Negative Thrive Assessment: Date of Thrive Assessment Date Thrive assessed 04/15/24 04/15/24 09:49 Currently or been in a relationship where the following occur: No concerns reported Const General: cooperative, comfortable, no acute distress and alert Neck Neck: Yes no lymphadenopathy Thyroid: Thyroid normal Resp Effort & Inspection: normal respiratory effort Auscultation: clear to auscultation bilaterally Percussion: percussion normal Cardio Jugular venous distension: no JVD Palpation: normal PMI Rate: regular rate Rhythm: regular rhythm Heart sounds: S1 normal heart sound present and S2 normal heart sound present GI Inspection: Yes normal to inspection Palpation (GI): No hepatosplenomegaly present Skin General skin exam: no rashes or lesions noted Extrem General: Yes no clubbing, cyanosis or edema Coding Level of Care Code Est Pt Level 3 (44242) Diagnoses Hypertension I10 Assessment & Plan Assessment & Plan (1) Hypertension: Code(s): I10 - Essential (primary) hypertension Category: Medical Plan: stable; same rx Medications: New noreth-ethinyl estradiol-iron 0.4mg-35mcg(21) and 75 mg (7) (Iesah Ny) 1 tab PO DAILY 84 tabs 0RF
== END 2024-04-15 10:05 | disposition home or self-care (01) ==
PROVIDERS: PCP Internal Medicine; Visit Provider Internal Medicine
DX: I10 Essential (primary) hypertension (principal)

== ENCOUNTER → 2024-04-15 09:27 | Outpatient (BNVA) | payer MEDICARE, MEDICAID, SELFPAY | PROVIDERS: PCP Internal Medicine; Visit Provider Internal Medicine | DX: I10 Essential (primary) hypertension (principal) | CPT/HCPCS: 99212 ==

== ENCOUNTER 2024-09-09 08:12 | Outpatient (REF) | payer MEDICARE, MEDICAID, SELFPAY ==
--- OUTSIDE RECORDS SUMMARY | 2024-09-09 08:22 | XMS_ITS | Clinical Summary ---
[facility] Address [address] [place] [address] Care Team Providers Care Fur Trapper Name Role Phone Shane Ag MD Primary Care Provider Social History Tobacco Use Types Packs/Day Years Used Date Smoking Tobacco: Never Assessed Comments Unknown Sex and Gender Information Value Date Recorded Sex Assigned at Not on file Legal Sex Female 9:48 PM EST Gender Identity Not on file Sexual Orientation Not on file Plan of Treatment Upcoming Encounters Date Type Department Care Team (Late st Contact Info) Description 09/16/2024 10:00 AM EDT [facility]ointment [facility] [address] [address] Health Maintenance Due Date Last Done Comments DTaP,Tdap,and Td Vaccines (1 - Tdap) 01/21/1984 Hepatitis B Vaccines (1 of 3 - 19+ 3-dose series) 01/21/1984 Cervical Cancer Screening: Pap Smear 1986 Pneumococcal Vaccine: 50+ Years (1 of 1 - PCV) 2015 Zoster Vaccines (1 of 2) 2015 Colorectal Cancer Screening: Colonoscopy 2022 HIV Screening 2022 Hepatitis C Screening 2022 Medicare Annual Wellness Visit 2022 Social Influencers of Health Screening 2022 COVID-19 Vaccine ( season) 2023 Depression Screening 02/19/2024 Influenza Vaccine (#1) 2024 Breast Cancer Screening 09/12/2025 09/13/19 24, 09/10/2022, 09/08/2021, Additional history exists RSV Immunization Adult Patients (1 - 1-dose 75+ series) 01/21/2040 HIB Vaccines Aged Out No longer eligi ble based on patient's age to complete this topic HPV Vaccines Aged Out No longer eligi ble based on patient's age to complete this topic Hepatitis A Vaccines Aged Out No long er eligible based on patient's age to complete this topic IPV Vaccines Aged Out No longer eligi ble based on patient's age to complete this topic MMR Vaccines Aged Out No longer eligi ble based on patient's age to complete this topic Meningococcal ACWY Vaccine Aged Out N o longer eligible based on patient's age to complete this topic Meningococcal B Vaccine Aged Out No l onger eligible based on patient's age to complete this topic RSV Immunization Patients Under 20 months Aged Out No longer eligible based on patient's age to complete this topic Varicella Vaccines Aged Out No longer eligible based on patient's age to complete this topic Procedures Procedure Name Priority Date/Time Associated Diagnosis Comments [facility] SCREENING DIGITAL Routine 09/13/2023 1:03 PM EDT Encounter for screening mammogram for malignant neoplasm of breast from Last 3 Months or Most Recently Relevant to Health Maintenance Results * [facility] SCREENING DIGITAL (09/13/2023 1:03 PM EDT) Anatomical Region Laterality Modality Mammography 09/13/2023 7:35 AM EDT Narrative 09/13/2023 1:03 PM EDT [facility] Diagnostic Imaging Department [address] [place], [place] [id number] Patient: VICTORIAKRUPAJASMINA D.O.B./Age/Sex: 1965 - 58 - F Unit#: [id number] Location/Status: [facility]/REG CLI Mnemonic/Ordering Site: [facility] Ordering Physician: JAY JARQUIN MD [facility] Screening Digital - 09/13/23 - [id number] Report Status:Signed EXAM: [facility] Screening Digital EXAM DATE AND TIME: 09/13/2023 8:06 AM HISTORY: Annual screening COMPARISON: 09/10/2022, 09/08/2021, 09/05/2020, 09/03/2019 and 08/25/2018 TECHNIQUE: Bilateral digital breast tomosynthesis was performed in the CC and MLO projections. Computer aided detection with [employer] and [employer] 3D 3.1 was employed. TISSUE DENSITY: b. There are scattered areas of fibroglandular density. FINDINGS: No suspicious masses, grouped microcalcifications, or areas of architectural distortion are seen. The skin and vascularity are unremarkable. IMPRESSION: Stable mammographic appearance of the breasts. No evidence of malignancy is seen. A negative mammogram in the presence of a clinically suspicious palpable abnormality does not preclude the possibility of malignancy or alter the indications for biopsy. BI-RADS: Category 1: Negative RECOMMENDATION(S): 1: Routine screening mammogram BILATERAL in 1 year. Dictating Physician: KASSANDRA THOMPSON MD Electronically Signed by: KASSANDRA THOMPSON MD Dic Date/Time: 09/13/23 1255 Sign date/Time: 09/13/23 1303 Procedure Note Kassandra Thompson MD - 12/04/2023 [facility] Diagnostic Imaging Department [address] [place] [address] Patient: JASMINA FAYE /Age/Sex: 1965 - 58 - F Unit#: [id number] Location/Status: [facility]/REG CLI Mnemonic/Ordering Site: [facility] Ordering Physician: JAY JARQUIN MD [facility] Screening Digital - 09/13/23 - [id number] Report Status:Signed EXAM: [facility] Screening Digital EXAM DATE AND TIME: 09/13/2023 8:06 AM HISTORY: Annual screening COMPARISON: 09/10/2022, 09/08/2021, 09/05/2020, 09/03/2019 and 08/25/2018 TECHNIQUE: Bilateral digital breast tomosynthesis was performed in the CCand MLO projections. Computer aided detection with [employer] 3D 3.1 was employed. TISSUE DENSITY: b. There are scattered areas of fibroglandular density. FINDINGS: No suspicious masses, grouped microcalcifications, or areas ofarchitectural distortion are seen. The skin and vascularity are unremarkable. IMPRESSION: Stable mammographic appearance of the breasts. No evidence of malignancyis seen. A negative mammogram in the presence of a clinically suspicious palpable abnormality does not preclude the possibility of malignancy or alter the indications for biopsy. BI-RADS: Category 1: Negative RECOMMENDATION(S): 1: Routine screening mammogram BILATERAL in 1 year. Dictating Physician: KASSANDRA THOMPSON MD Electronically Signed by: KASSANDRA THOMPSON MD Dic Date/Time: 09/13/23 1255 Sign date/Time: 09/13/23 1303 Jay Jarquin MD IMG BI PROCEDURES Final Result from Last 3 Months or Most Recently Relevant to Health Maintenance Insurance MEDICAID - [place] MEDICARE Care Teams Fur Trapper Relationship Specialty Start Date End Date Shane Ag MD [address] [place] [address] PCP - General Internal Medicine 07/31/24
--- OUTSIDE RECORDS SUMMARY | 2024-09-09 08:22 | XMS_ITS | Clinical Summary ---
Author Organization [facility] Address [address] [address] Phone Care Team Providers Care Food Service Steward Name Role Phone Jay Jarquin MD Primary Care Provider [phone] Allergies Active Allergy Reactions Criticality Noted Date Comments Clindamycin Hcl Rash with Blisters High 10/06/2019 Medications metoprolol succinate (TOPROL-XL) 25 MG 24 hr tablet Take 50 mg by mouth daily. Active therapeutic multivitamin tablet Take 1 tablet by mouth daily. Active oxyCODONE HCl 20 mg Tab Take 15 mg by mouth 2 (two) times a day. Active oxyCODONE (OXYCONTIN) 40 mg 12 hr tablet Take 20 mg by mouth 2 (two) times a day. Active aspirin 81 MG EC tablet Take 81 mg by mouth daily. Active atorvastatin (LIPITOR) 20 MG tablet Take 20 mg by mouth daily. 10/09/2021 Active hydroCHLOROthiazi de (HYDRODIURIL) 25 MG tablet Take 1 tablet by mouth every morning. 05/04/2022 Active Active Problems Problem Noted Date Diagnosed Date Menopause 03/10/2022 Weight gain 03/10/2022 Class 1 obesity with body ma ss index (BMI) of 32.0 to 32.9 in adult 03/10/2022 Pre-diabetes 03/10/2022 Hormone replacement therapy (postmenopausal) 05/2019 Assessment & Plan (07/23/2019 10:11 AM EDT): Discussed weight changes are usually more likely to be associated with changes in metabolism as a woman enters menopause. Daily caloric intake needs have some decline. Continued exercise encouraged. May increase intensity or routine. Although patient feels her weight was much better controlled on oral contraception, she understands at this point she is not a candidate for that medication. Since symptoms remain well controlled, I have suggested we change the dosing of her current HRT regimen. Plan to decrease to 0.45/1.5 Prempro. Patient to call with follow-up in 2 to 3 months. Chronic fatigue disorder Family History Medical History Relation Comments Heart attack Father age 37 Hyperlipidemia Mother Hypertension Mother Relation Status Comments Father (Age 37) sudden cardiac Mother Social History Tobacco Use Types Packs/Day Years Used Date Smoking Tobacco: Former Smokeless Tobacco: Never Alcohol Use Standard Drinks/Week Comments Never 0 (1 standard drink = 0.6 oz pur e alcohol) Education Answer Date Recorded Are you interested in more education? Not on namrata e 06/15/2022 Are you concerned about learning? Not on file 06/15/2022 No 06/15/2022 No 06/15/2022 Digital Access Answer Date Recorded No 07/12/2022 No 07/12/2022 Reliable internet access at home? Not on file 07/12/2022 Device with a working camera? Not on file Comments No Sex and Gender Information Value Date Recorded Sex Assigned at Female 11/03/2021 9:55 AM EDT Legal Sex Female 2:41 PM EDT Gender Identity Female 11/03/2021 9:55 AM EDT Sexual Orientation Straight 11/03/2021 9: 55 AM EDT Occupation Industry Job Start Date Job End Date disabled Not on file Not on file Not on file Last Filed Vital Signs Vital Sign Reading Time Taken Comments Blood Pressure 166/90 07/12/2022 10:15 AM EDT Pulse 99 07/12/2022 9:51 AM EDT Temperature - - Respiratory Rate - - Oxygen Saturation - - Inhaled Oxygen Concentration - - Weight 82.6 kg (182 lb) 07/12/2022 9:51 AM EDT Height 160 cm (5' 3 ) 12/28/2021 10:48 AM EST Body Mass Index 32.24 12/28/2021 10:48 AM EST Plan of Treatment Health Maintenance Due Date Last Done Comments DEPRESSION SCREENING 1977 SMOKING Hx and SMOKELESS TOBACCO SCREENING 1978 HEPATITIS C SCREENING 1983 HIV ONE-TIME SCREENING (18-6 5 YEARS) 1983 COLOGUARD 2010 COLONOSCOPY 2010 COLORECTAL CANCER SCREENING 2010 FIT TEST 2010 FOBT 2010 SIGMOIDOSCOPY 2010 VIRTUAL COLONOSCOPY 2010 PNEUMOCOCCAL VACCINES (50+ years) (1 of 1 - PCV) 2015 ZOSTER VACCINES (2 of 2) 01/11/2020 11/16/2019 POTASSIUM LEVEL 10/07/2020 10/08/2019 MAMMOGRAM 09/03/2021 09/04/2019 PAP SMEAR 05/06/2023 05/05/2018, 05/05/2018, 08/28/1999 COVID-19 VACCINE (2 2023-2 5 season) 2023 06/17/2020 SCREENING FOR DIABETES 07/12/2025 3, 10/08/2019 LIPID PANEL 12/28/2026 12/28/2021 Adult Td,Tdap Booster 09/15/2029 09/16/2019 HEPATITIS A VACCINES Aged Out No long er eligible based on patient's age to complete this topic HIB VACCINES Aged Out No longer eligi ble based on patient's age to complete this topic MENINGOCOCCAL VACCINES (ACWY) Aged Out No longer eligible based on patient's age to complete this topic MENINGOCOCCAL VACCINES (B) Aged Out N o longer eligible based on patient's age to complete this topic Medical Devices Not on file Procedures Procedure Name Priority Date/Time Associated Diagnosis Comments LIPID PANEL Routine 12/28/2021 12:11 PM EST Weight gain COMPREHENSIVE METABOLIC PANEL Routine 10/08/2019 9:27 AM EDT Hormone replacement therapy (postmenopausal) Nocturnal polyuria HM MAMMOGRAPHY Routine 09/04/2019 PAP TEST Routine 05/05/2018 12:00 AM EDT from Last 3 Months or Most Recently Relevant to Health Maintenance Results * Lipid panel (12/28/2021 12:11 PM EST) HDL 79 35 - 100 mg/dL [facility] CHOLESTEROL 180 <200 mg/dL [facility] TRIGLYCERIDES 46 40 - 150 mg/dL [facility] LDL 92 50 - 129 mg/dL [facility] CARDIAC RISK RATIO 2.3 0.0 - 5.0 [facility] NON-HDL CHOLESTEROL 101 mg/dL [facility] Comment:NCEP ATP III guideli gal suggest a non-HDL cholesterol goal 30 mg/dl higher than the patient-specific LDL goal. 12/28/2021 12:1 1 PM EST 12/28/2021 4:19 PM EST us Summer Wong MD LAB BLOOD ORDERABLES Final Result [facility] [address] [place] [address] * (ABNORMAL) Comprehensive metabolic panel (10/08/2019 9:27 AM EDT) SODIUM 139 133 - 146 mmol/L [facility] POTASSIUM 3.9 3.3 - 5.1 mmol/L [facility] CHLORIDE 99 96 - 108 mmol/L [facility] CO2 25 21 - 35 mmol/L [facility] BUN 22(H) 6 - 19 mg/dL [facility] CREATININE 0.80 0.5 - 1.5 mg/dL [facility] GLUCOSE 96 70 - 99 mg/dL [facility] ALBUMIN 4.6 3.9 - 4.8 g/dL [facility] TOTAL PROTEIN 7.9 6.5 - 8.0 g/dL [facility] CALCIUM 9.9 8.4 - 10.3 mg/dL [facility] ALKALINE PHOSPHATASE 63 39 - 117 U/L [facility] TOTAL BILIRUBIN 0.4 0.0 - 1.2 mg/dL [facility] AST 24 0 - 37 U/L [facility] ALT 18 0 - 40 U/L [facility] GLOBULIN 3.3 1 - 4.8 g/dL [facility] EGFR 84 >59 mL/min/1.7 3m2 [facility] Comment:Estimated glomerular filtration rate calculated using the CKD-EPI equation. ANION GAP 19 10 - 20 mmol/L [facility] Blood 10/08/2019 9:27 AM EDT 10/08/2019 9:31 AM EDT us Madhu Zhao MD LAB BLOOD ORDERABLES Final Resu lt [address] [address] * HM MAMMOGRAPHY FOR RESULT ENTRY ONLY (09/04/2019) us Brigitte Falk MD HEALTH MAINTENANCE Final Resul t * Pap Smear (05/05/2018 12:00 AM EDT) 05/05/2018 05/06/2018 3:1 3 PM EDT Narrative SEE NARRATIVE - 05/09/2018 9:52 AM EDT [address] [address] Distiller: Ariella Duffy MD INTERNAL AFFAIRS COMMANDER Cytology Report FINAL DIAGNOSIS A. PAP SMEAR (SUREPATH) CE: SPECIMEN ADEQUACY: Satisfactory for evaluation; transformation zone absent/insufficient. INTERPRETATION: NEGATIVE FOR INTRAEPITHELIAL LESION OR MALIGNANCY. Electronically Signed Out By: Amy FREEMAN(ASCP) The Pap test is a screening test primarily for squamous cancers and precursors and has associated false-negative and false-positive results. New technologies such as liquid-based preparations may decrease but will not eliminate all false-negative results. Regular sampling and follow-up of unexplained clinical signs and symptoms are recommended to minimize false negative results. PROCEDURES/ADDENDA HPV Testing (Requested) Ordered Date: 05/06/2018 HPV Test Negative for high-risk human papillomavirus types 16, 18, 45 and the Other high risk probe set (Includes 31, 33, 35, 39, 51, 52, 56, 58, 59, 66, 68) by [employer] Onclarity HR-HPV analysis. Clinical correlation is advised. This HPV test was performed at [facility], [address] [place] [address]. This test has been FDA approved for [facility] cervical cytology specimens. The accuracy and precision of this test for all other specimen sources has been verified in the Cytopathology Laboratory of the [facility] and has not been cleared or approved by the U.S. Food and Drug Administration. Clinical correlation is advised. CLINICAL HISTORY Date of Last Menstrual Period: Not Provided Menstrual History: Keesha-Menopausal Other Clinical Conditions: Screening Pap SPECIMEN SOURCE A: PAP SMEAR (SUREPATH) CE Patient Name: JASMINA FAYE : 1965 (Age: 53) Sex: F Institution: [facility] Location: [facility] Date of Collection: 05/05/2018 Date of Reported: 05/09/2018 09:52 Results to: Sanjuanita Maguire MD us Sanjuanita Maguire MD CYTOLOGY ORDERABLES Final Result SEE NARRATIVE from Last 3 Months or Most Recently Relevant to Health Maintenance Insurance [facility] & [place] B Care Teams Food Service Steward Relationship Specialty Start Date End Date Jay Jarquin MD [address] [place] [address] [place] [address] PCP - General Internal Medicine 11/03/21 Additional Source Comments The information contained in this document represents components of the legal health record. It is not the complete legal health record.[facility]
[2024-09-09 09:53] LABS: Appearance Urine Cloudy; Glucose Urine UA Negative (Negative); PH 6.0 (5.0-9.0); Specific Gravity - Urine 1.020 (1.005-1.025); UMIC TRIGGER UACC YES
[2024-09-09 09:56] LABS: UACC Culture Trigger YES
== END 2024-09-09 08:13 | disposition home or self-care (01) ==
LOC: HO.LAB 08:12
PROVIDERS: PCP Internal Medicine; Visit Provider Internal Medicine
DX: R39.9 Unspecified symptoms and signs involving the genitourinary system (principal)
CPT/HCPCS: 81001; 87086; 87088; 87186

== ENCOUNTER 2024-09-17 12:15 | Outpatient (REF) | payer MEDICARE, MEDICAID, SELFPAY ==
--- NOTE | ~2024-09-17 | US_ITS ---
EXAMINATION: US RETROPERITONEAL COMPLETE (RENAL) CLINICAL INFORMATION: Pyuria, rule out hydronephrosis.. COMPARISON: None available. TECHNIQUE: Real-time imaging of the kidneys and bladder. FINDINGS: RIGHT KIDNEY: 10.9 x 4.2 x 4.7 cm (SAG x AP x TRV). The kidney is normal in size, contour, and echogenicity. Renal cortical thickness is normal. No calculi or suspicious focal parenchymal lesions. No hydronephrosis. There are several small cysts present, largest in the midpole measuring 0.9 x 0.9 x 1.1 cm. LEFT KIDNEY: 10.8 x 5.0 x 3.8 cm (SAG x AP x TRV). The kidney is normal in size, contour, and echogenicity. Renal cortical thickness is normal. No calculi or suspicious focal parenchymal lesions. No hydronephrosis. There are several small cysts present, largest in the lower pole measuring 0.5 x 0.6 x 0.5 cm. BLADDER: Well distended and normal. Bilateral ureteral jets are demonstrated. Prevoid bladder volume is 221 mL. Postvoid bladder volume is 25 mL. US/US retroperitoneal comp IMPRESSION: 1. No hydronephrosis or suspicious kidney abnormality. Bilateral small renal simple cysts. 2. Normal urinary bladder. Normal postvoid residual of 25 mL. Electronically signed by: Alvaro Bowling MD 09/17/2024 01:15 PM EDT
--- OUTSIDE RECORDS SUMMARY | 2024-09-17 12:37 | XMS_ITS | Clinical Summary ---
Author Organization [facility] Address [address] [address] Phone Care Team Providers Care Large Animal Veterinarian Name Role Phone Jay Jarquin MD Primary Care Provider [phone] Allergies Active Allergy Reactions Criticality Noted Date [...] EST) HDL 79 35 - 100 mg/dL [facility] CHOLESTEROL 180 <200 mg/dL [facility] TRIGLYCERIDES 46 40 - 150 mg/dL [facility] LDL 92 50 - 129 mg/dL [facility] CARDIAC RISK RATIO 2.3 0.0 - 5.0 [facility] NON-HDL CHOLESTEROL 101 mg/dL [facility] Comment:NCEP ATP III guideli gal suggest a non-HDL cholesterol goal 30 mg/dl higher than the patient-specific LDL goal. 12/28/2021 12:1 1 PM EST 12/28/2021 4:19 PM EST us Summer Wong MD LAB BLOOD ORDERABLES Final Result [facility] [address] [place] [address] * (ABNORMAL) Comprehensive metabolic panel (10/08/2019 9:27 AM EDT) SODIUM 139 133 - 146 mmol/L [facility] POTASSIUM 3.9 3.3 - 5.1 mmol/L [facility] CHLORIDE 99 96 - 108 mmol/L [facility] CO2 25 21 - 35 mmol/L [facility] BUN 22(H) 6 - 19 mg/dL [facility] CREATININE 0.80 0.5 - 1.5 mg/dL [facility] GLUCOSE 96 70 - 99 mg/dL [facility] ALBUMIN 4.6 3.9 - 4.8 g/dL [facility] TOTAL PROTEIN 7.9 6.5 - 8.0 g/dL [facility] CALCIUM 9.9 8.4 - 10.3 mg/dL [facility] ALKALINE PHOSPHATASE 63 39 - 117 U/L [facility] TOTAL BILIRUBIN 0.4 0.0 - 1.2 mg/dL [facility] AST 24 0 - 37 U/L [facility] ALT 18 0 - 40 U/L [facility] GLOBULIN 3.3 1 - 4.8 g/dL [facility] EGFR 84 >59 mL/min/1.7 3m2 [facility] Comment:Estimated glomerular filtration rate calculated using the CKD-EPI equation. ANION GAP 19 10 - 20 mmol/L [facility] Blood 10/08/2019 9:27 AM EDT 10/08/2019 9:31 AM EDT us Madhu Zhao MD LAB BLOOD ORDERABLES Final Resu lt [address] [address] * HM MAMMOGRAPHY FOR RESULT ENTRY ONLY (09/04/2019) us Brigitte Falk MD HEALTH MAINTENANCE Final Resul t * Pap Smear (05/05/2018 12:00 AM EDT) 05/05/2018 05/06/2018 3:1 3 PM EDT Narrative SEE NARRATIVE - 05/09/2018 9:52 AM EDT [address] [address] [employer] Truck Driver: Ariella Duffy MD GRID CASTING MACHINE OPERATOR HELPER Cytology Report FINAL DIAGNOSIS A. PAP SMEAR [...] 52, 56, 58, 59, 66, 68) by [employer] On[employer]arity HR-HPV analysis. Clinical correlation is advised. This HPV test was performed at [facility], [address] [place] [address]. This test has been FDA approved for SurePath cervical cytology specimens. The accuracy and precision of this test for all other specimen sources has been verified in the Cytopathology Laboratory of the [facility] and has not been cleared or approved by the U.S. Food and Drug Administration. Clinical correlation is advised. CLINICAL HISTORY Date of Last Menstrual Period: Not Provided Menstrual History: Keesha-Menopausal Other Clinical Conditions: Screening Pap SPECIMEN SOURCE A: PAP SMEAR (SUREPATH) CE Patient Name: JASMINA FAYE : 1965 (Age: 53) Sex: F Institution: [facility] Location: [facility] Date of Collection: 05/05/2018 Date of Reported: 05/09/2018 09:52 Results to: Sanjuanita Maguire MD us Sanjuanita Maguire MD CYTOLOGY ORDERABLES Final Result SEE NARRATIVE from Last 3 Months or Most Recently Relevant to Health Maintenance Insurance [facility] [place] B Care Teams Large Animal Veterinarian Relationship Specialty Start Date End Date Jay Jarquin MD [address] [place] [address] [place] [address] PCP - General Internal Medicine 11/03/21 Additional Source Comments The information contained in this document represents components of the legal health record. It is not the complete legal health record.[facility]
== END 2024-09-17 12:16 | disposition home or self-care (01) ==
LOC: HO.US 12:15
PROVIDERS: PCP Internal Medicine; Visit Provider Internal Medicine
DX: R82.81 Pyuria (principal); R31.9 Hematuria, unspecified
CPT/HCPCS: 76770

== ENCOUNTER → 2024-09-17 12:17 | Outpatient (BNV) | payer MEDICARE, MEDICAID, SELFPAY | PROVIDERS: PCP Internal Medicine; Visit Provider Radiology Diagnostic Radiology | DX: N28.1 Cyst of kidney, acquired (principal) | CPT/HCPCS: 76770 ==

== ENCOUNTER 2024-10-16 09:55 | Outpatient (AMB) | payer MEDICARE, MEDICAID, SELFPAY ==
[2024-10-16 10:05] VITALS: BP 152/98; PULSE 75; TEMP 36.1; O2SAT 97; BMI 34.0
--- NOTE | 2024-10-16 10:05 | A.OFFPC_ITS ---
Vital Signs 10/16/24 10:05 10/16/24 11:01 Height 5 ft 4 in Weight 198 lb BMI 34.0 BP 152/98 H 150/100 H Blood Pressure Location Lt brachial Lt brachial Position Sitting Sitting Pulse 75 Pulse Source Pulse Oximeter Temp 97.0 F Temp Source Temporal Artery Scan Pulse Oximetry (%) 97 Oxygen Delivery Method Room Air Intake Visit Reasons: Transfer care from Dr. Jarquin /u Allergies Clindamycin HCl Allergy (Intermediate, Uncoded 10/16/24 10:46) blisters on hands dust Allergy (Unknown, Uncoded 10/16/24 10:42) unknown Medication List - Last Reconciled 10/16/24 by Shane Ag MD aspirin 81 mg PO DAILY atorvastatin 20 mg PO DAILY hydrochlorothiazide 25 mg PO DAILY metoprolol succinate ER 100 mg PO DAILY noreth-ethinyl estradiol-iron 0.4mg-35mcg(21) and 75 mg (7) ([place] Fe) 1 tab PO DAILY oxycodone ER 20 mg PO Q12H Tobacco use date assessed: 10/16/24 Dental Screening Dental Screen Date: 10/16/24 Did you have a dental visit in the last 12 months?: Yes Did you have a dental problem in the last 6 months where you did not have access to dental care?: No Was dental information given to patient?: Patient has dentist HPI Transfer care from Dr. Jarquin /u HPI Details Patient comes in today for her follow up visit - is transferring over from Dr. Jarquin, who retired from the practice a few months ago States that her blood pressure has been running high lately, especially when she was at her dolly pusher's office earlier this week on Saturday - her blood pressure then was reportedly at 160/98 Patient states that she feels okay and she denies experiencing any headaches or dizziness Denies any chest pains, no shortness of breath No nausea/vomiting, no abdominal pain No change in bowel habits noted [facility] Medical History (Updated 10/16/24 @ 23:45 by Shane Ag MD) Obesity (BMI 30-39.9) Primary osteoarthritis of knees, bilateral Cervical spondylosis Pure hypercholesterolemia Essential hypertension Menopause Obesity Hyperlipidemia High cholesterol High blood pressure Fibromyalgia Back pain Surgical History No pertinent past surgical history Family History Father No problems noted. Mother No problems noted. Social History Housing: Condominium Alcohol intake: never Tobacco use type: Cigarette e-Cigarette/Vaping Use: Never Used Second Hand Smoke Exposure: No service: No Current occupational status: disabled Gender identity: Female Cognitive needs: No Hearing needs: No Vision needs: No Questionnaire PHQ-9 Over the last 2 weeks, how often have you been bothered by any of the following problems? 1. Little interest or pleasure in doing things: not at all 2. Feeling down, depressed, or hopeless: several days 3. Trouble falling or staying asleep, or sleeping too much: several days 4. Feeling tired or having little energy: several days 5. Poor appetite or overeating: not at all 6. Feeling bad about yourself - or that you are a failure or have let yourself or your family down: several days 7. Trouble concentrating on things, such as reading the newspaper or watching television: not at all 8. Moving or speaking so slowly that other people could have noticed. Or the opposite - being so fidgety or restless that you have been moving around a lot more than usual: not at all 9. Thoughts that you would be better off or of hurting yourself in some way: not at all Total score: 4 Depression Screening Interpretation: Positive Depression Screening Follow-up: Follow-up Visit Requested Depression Screening Done: Yes [address]9075 - PHQ-9 Billing: Yes Source: Developed by Drs. Madhu Spear, Cyndi Lizarraga, Robby Bonilla and colleagues, with an educational tim from [employer]. Thrive Questionnaire Date Thrive assessed: 10/16/24 I am a: Patient What is your living situation today?: I have a steady place to live Within the past 12 months, did the food you bought not last and you didn't have the money to get more?: Never true Within the past 12 months, did you worry whether your food would run out before you got money to buy more?: Never true Do you have trouble paying for medicines?: No Do you have trouble getting transportation to medical appointments?: No Do you have trouble paying your heating and electricity bill?: No Do you have trouble taking care of your child, family member or friend?: No Do you have trouble with day-to-day activities such as bathing, preparing meals, shopping, managing finances, etc.?: No Are you currently unemployed and looking for a job?: No Are you interested in more education?: No Please select the resources that you would like help with: None Currently or been in a relationship where the following occur: No concerns reported THRIVE Score: 0 AUDIT C Alcohol Use Questionnaire (AUDIT-C) 1. How often do you have a drink containing alcohol?: Never 3. How often do you have six or more drinks on one occasion?: Never Total Score: 0 Score Reviewed/Action Taken: Yes ARIANNE-7 AMB Questionnaire ARIANNE-7 Date ARIANNE - 7 assessed: 04/15/24 Feeling nervous, anxious, or on edge: 1 = Several days Not being able to stop or control worryin = Nearly every day Worrying too much about different things: 3 = Nearly every day Trouble relaxin = Several days Being so restless that it is hard to sit still: 0 = Not at all Becoming easily annoyed or irritable: 1 = Several days Feeling afraid as if something awful might happen: 1 = Several days Total ARIANNE-7 score (0-4 normal; 5-9 mild; 10-14 moderate; 15-21 severe): 10 Source: Developed by Drs. Madhu Spear, Cyndi Lizarraga, Robby Bonilla and colleagues, with an educational tim from [employer]. Review of Systems Const Denies chills, Reports fatigue, Denies fever(s) and Denies headache(s) ENT Denies dysphagia, Denies dizziness, Denies otalgia, Denies headache(s), Denies neck pain, Denies odynophagia and Denies sore throat Card Denies chest pain, Denies palpitations and Denies dyspnea Resp Denies chest congestion, Denies cough and Denies dyspnea GI Denies abdominal pain, Denies constipation, Denies dysphagia, Denies heartburn, Denies diarrhea, Denies nausea, Denies odynophagia and Denies vomiting Denies difficulty voiding, Denies nocturia, Denies dysuria and Denies urinary urgency Musc Denies back pain, Reports myalgias (frequent - due to her fibromyalgia) and Denies neck pain Skin/Breast Denies rash Neuro Denies dizziness and Denies headache(s) Endo Reports fatigue and Denies palpitations Physical exam (Primary Care) Vital Signs: Last Vital Signs Temp 97.0 F 10/16/24 10:05 Pulse 75 10/16/24 10:05 BP 150/100 H 10/16/24 11:01 Pulse Ox 97 10/16/24 10:05 Oxygen Delivery Method Room Air 10/16/24 10:05 BMI result Body Mass Index 34.0 Tobacco/Smoking Status: Tobacco use Status Tobacco use date assessed 10/16/24 10/16/24 10:13 Patient Tobacco Use Status 10/16/24 10:48 Tobacco use type Cigarette 10/16/24 10:13 e-Cigarette/Vaping Use Never Used 10/16/24 10:13 PHQ-9: PHQ-9 Score PHQ-9: Total score 4 10/16/24 10:56 Depression Screening Interpretation: Positive Depression Screening Follow-up: Follow-up Visit Requested Thrive Assessment: Date of Thrive Assessment Date Thrive assessed 10/16/24 10/16/24 10:48 Currently or been in a relationship where the following occur: No concerns reported Const General: no acute distress and alert HENMT Ears: TM's normal bilaterally and EAC's normal Throat: Yes posterior oropharynx normal and Yes tonsils normal (no TP congestion) Neck Neck: Yes supple and No lymphadenopathy Thyroid: Thyroid normal Resp Auscultation: clear to auscultation bilaterally, no rales and no wheezes Cardio Rate: regular rate Rhythm: regular rhythm Heart sounds: no murmurs GI Palpation (GI): Soft to palpation and nontender Auscultation: normal bowel sounds General: Yes no CVA tenderness Back/Spine/Pelvis Back: no CVA tenderness Thoracic/Lumbar Spine: No lumbar spinal tenderness Skin Rashes: no rashes Extrem General: Yes no clubbing, cyanosis or edema Coding Level of Care Code Est Pt Level 4 (26791) Diagnoses Essential hypertension I10 Pure hypercholesterolemia E78.00 Cervical spondylosis M47.812 Primary osteoarthritis of knees, bilateral M17.0 Fibromyalgia M79.7 Obesity (BMI 30-39.9) E66.9 Additional Codes PHQ-9 - 81588 - PHQ-9 Billing: Yes ([id number]) Assessment & Plan Assessment & Plan (1) Essential hypertension: Code(s): I10 - Essential (primary) hypertension Category: Medical Plan: Reinforced low sodium diet - goal is systolic BP of at least 130 mm or less Continue HCTZ 25 mg QD and Metoprolol ER 100 mg QD Will start patient additionally on Losartan 25 mg QD She is instructed to continue monitoring her blood pressure regularly (2) Pure hypercholesterolemia: Code(s): E78.00 - Pure hypercholesterolemia, unspecified Category: Medical Plan: Reinforced low cholesterol diet Continue Atorvastatin 20 mg QD Will have patient recheck her labs and fasting lipids in 3 months for follow up (3) Cervical spondylosis: Code(s): M47.812 - Spondylosis without myelopathy or radiculopathy, cervical region Category: Medical Plan: Continue Oxycodone ER 20 mg Q 12 hours for pain She continues to follow up with Dr. Sheehan at [facility] regularly for continuing management of her chronic neck pain and generalized pain syndrome (4) Primary osteoarthritis of knees, bilateral: Code(s): M17.0 - Bilateral primary osteoarthritis of knee Category: Medical Plan: Patient reports being advised by orthopedics a couple of years ago that she has significant osteoarthritis of both knees and will require arthroplasty of both knees at some point Follow up with orthopedics as scheduled or as needed (5) Fibromyalgia: Code(s): M79.7 - Fibromyalgia Category: Medical Plan: Patient is encouraged to continue to try to stay active and exercise regularly as tolerated to help manage her fibromyalgia symptoms She is following up with [facility] regularly for pain management (6) Obesity (BMI 30-39.9): Code(s): E66.9 - Obesity, unspecified Category: Medical Plan: Reinforced diet/exercise as tolerated/lose weight Plan Follow up in 3 months Orders: Orders Complete Blood Count Auto Diff 3 Months D64.9 - Anemia, unspecified Comprehensive [place]. Panel Fast 3 Months E78.00 - Pure hypercholesterolemia, unspecified Lipid Panel 3 Months E78.00 - Pure hypercholesterolemia, unspecified UA CC w/rflx Micro + Cult 3 Months R30.0 - Dysuria Vitamin D 25-OH Total 3 Months E55.9 - Vitamin D deficiency, unspecified CK, Total+Isoenzymes, Serum 3 Months M79.10 - Myalgia, unspecified site TSH reflex Free T4 3 Months E78.00 - Pure hypercholesterolemia, unspecified Vitamin B12 and Folate 3 Months E53.8 - Deficiency of other specified B group vitamins Hemoglobin A1c 3 Months R73.9 - Hyperglycemia, unspecified Medications: New losartan 25 mg PO DAILY 30 tabs 3RF 30 days
--- OUTSIDE RECORDS SUMMARY | 2024-10-16 10:42 | XMS_ITS | Clinical Summary ---
Author Organization [facility] Address [address] [address] Phone Care Team Providers Care Bartacker Name Role Phone Jay Jarquin MD Primary Care Provider [phone] Allergies Active Allergy Reactions Criticality Noted Date [...] EST) HDL 79 35 - 100 mg/dL [facility] CHOLESTEROL 180 <200 mg/dL [facility] TRIGLYCERIDES 46 40 - 150 mg/dL [facility] LDL 92 50 - 129 mg/dL [facility] CARDIAC RISK RATIO 2.3 0.0 - 5.0 [facility] NON-HDL CHOLESTEROL 101 mg/dL [facility] Comment:NCEP ATP III guideli gal suggest a non-HDL cholesterol goal 30 mg/dl higher than the patient-specific LDL goal. 12/28/2021 12:1 1 PM EST 12/28/2021 4:19 PM EST us Summer Wong MD LAB BLOOD ORDERABLES Final Result [facility] [address] [place] [address] * (ABNORMAL) Comprehensive metabolic panel (10/08/2019 9:27 AM EDT) SODIUM 139 133 - 146 mmol/L [facility] POTASSIUM 3.9 3.3 - 5.1 mmol/L [facility] CHLORIDE 99 96 - 108 mmol/L [facility] CO2 25 21 - 35 mmol/L [facility] BUN 22(H) 6 - 19 mg/dL [facility] CREATININE 0.80 0.5 - 1.5 mg/dL [facility] GLUCOSE 96 70 - 99 mg/dL [facility] ALBUMIN 4.6 3.9 - 4.8 g/dL [facility] TOTAL PROTEIN 7.9 6.5 - 8.0 g/dL [facility] CALCIUM 9.9 8.4 - 10.3 mg/dL [facility] ALKALINE PHOSPHATASE 63 39 - 117 U/L [facility] TOTAL BILIRUBIN 0.4 0.0 - 1.2 mg/dL [facility] AST 24 0 - 37 U/L [facility] ALT 18 0 - 40 U/L [facility] GLOBULIN 3.3 1 - 4.8 g/dL [facility] EGFR 84 >59 mL/min/1.7 3m2 [facility] Comment:Estimated glomerular filtration rate calculated using the CKD-EPI equation. ANION GAP 19 10 - 20 mmol/L [facility] Blood 10/08/2019 9:27 AM EDT 10/08/2019 9:31 AM EDT us Madhu Zhao MD LAB BLOOD ORDERABLES Final Resu lt [address] [address] * HM MAMMOGRAPHY FOR RESULT ENTRY ONLY (09/04/2019) us Brigitte Falk MD HEALTH MAINTENANCE Final Resul t * Pap Smear (05/05/2018 12:00 AM EDT) 05/05/2018 05/06/2018 3:1 3 PM EDT Narrative SEE NARRATIVE - 05/09/2018 9:52 AM EDT [address] [address] Practice Manager: Ariella Duffy MD DIVER HELPER Cytology Report FINAL DIAGNOSIS A. PAP [...] 52, 56, 58, 59, 66, 68) by [employer] Onclarity HR-HPV analysis. Clinical correlation is advised. This HPV test was performed at [facility], [address] [place] [address]. This test has been FDA approved for SurePath cervical cytology specimens. The accuracy and precision of this test for all other specimen sources has been verified in the Cytopathology Laboratory of the [facility] and has not been cleared or approved by the U.S. Food and Drug Administration. Clinical correlation is advised. CLINICAL HISTORY Date of Last Menstrual Period: Not Provided Menstrual History: Keesha-Menopausal Other Clinical Conditions: Screening Pap SPECIMEN SOURCE A: PAP SMEAR (SUREPATH) CE Patient Name: JASMINA FAYE : 1965 (Age: 53) Sex: F Institution: [facility] Location: [facility] Date of Collection: 05/05/2018 Date of Reported: 05/09/2018 09:52 Results to: Sanjuanita Maguire MD us Sanjuanita Maguire MD CYTOLOGY ORDERABLES Final Result SEE NARRATIVE from Last 3 Months or Most Recently Relevant to Health Maintenance Insurance [facility] [place] B Care Teams Bartacker Relationship Specialty Start Date End Date Jay Jarquin MD [address] [place] [address] [place] [address] PCP - General Internal Medicine 11/03/21 Additional Source Comments The information contained in this document represents components of the legal health record. It is not the complete legal health record.[facility]
--- OUTSIDE RECORDS SUMMARY | 2024-10-16 10:42 | XMS_ITS | Clinical Summary ---
Author Organization [facility] Address [address] [place] [address] Phone Care Team Providers Care Quality Assurance Project Manager Name Role Phone Shane Ag MD Primary Care Provider Encounters Date Type Department Care Team Description 09/16/2024 9:32 AM EDT - 09/16/2024 11:59 PM EDT Hospital [facility] [address] [address] Encounter for screening mammogram for breast cancer Discharge Disposition: Home or Self Care from Last 3 Months Surgical History Surgery Date Site/Laterality Comments STEREOTACTIC CORE BIOPSY Family History Medical History Relation Name Comments Breast cancer Cousin Relation Name Status Comments Cousin Alive Social History Tobacco Use Types Packs/Day Years Used Date Smoking Tobacco: Never Assessed Comments No Sex and Gender Information Value Date Recorded Sex Assigned at Not on file Legal Sex Female 9:48 PM EST Gender Identity Not on file Sexual Orientation Not on file Obstetrics History Last Filed Vital Signs Vital Sign Reading Time Taken Comments Blood Pressure - - Pulse - - Temperature - - Respiratory Rate - - Oxygen Saturation - - Inhaled Oxygen Concentration - - Weight 85.7 kg (189 lb) 09/16/2024 9:58 AM EDT Height 160 cm (5' 3 ) 09/16/2024 9:58 AM EDT Body Mass Index 33.48 09/16/2024 9:58 AM EDT Plan of Treatment Health Maintenance Due Date [...] Influencers of Health Screening 2022 COVID-19 Vaccine (2023- season) 2023 Depression Screening 02/19/2024 Influenza Vaccine (#1) 2024 Breast Cancer Screening 09/16/2026 09/17/19, 09/13/2023, 09/10/2022, Additional history exists Cholesterol Screening (Lipid Panel) 12/28/2026 12/28/2021 RSV Immunization Adult Patients (1 - 1-dose [...] Procedure Name Priority Date/Time Associated Diagnosis Comments MG MAMMO DIGITAL SCREENING W JAKUB BILAT Routine 09/16/2024 9:59 AM EDT Encounter for screening mammogram for breast cancer from Last 3 Months Results * MG Mammo Digital Screening w Jakub bilat (09/16/2024 9:59 AM EDT) Anatomical Region Laterality Modality Breast Bilateral Mammography 09/16/2024 5:17 PM EDT Impressions 09/16/2024 5:21 PM EDT No mammographic evidence of malignancy. No suspicious interval change. A negative mammogram in the presence of a clinically suspicious palpable abnormality does not preclude the possibility of malignancy or alter the indications for biopsy. ASSESSMENT: BI-RADS 1: NEGATIVE RECOMMENDATION(S): 1: Routine screening mammogram BILATERAL in 1 year. [facility] location[facility] at [address], [address] -------- FINAL REPORT -------- Dictated By: Jasson Hooker Dictated Date: 09/16/2024 17:17 ET Assigned Physician: Jasson Hooker Reviewed and Electronically Signed By: Jasson Hooker Signed Date: 09/16/2024 17:21 ET Workstation ID: [id number] Transcribed By: Self Edit Transcribed Date: 09/16/2024 17:17 ET Narrative 09/16/2024 5:21 PM EDT EXAM: SCREENING MAMMOGRAPHY, BILATERAL HISTORY: SCREENING. Cousin with history of breast cancer. COMPARISON: 09/13/23, 09/10/22, 09/08/21, 09/05/20 TECHNIQUE: Synthesized CC and MLO projections of each breast. Tomosynthesis of each breast in the CC and MLO projections. ADDITIONAL IMAGING: None Computer-aided detection was employed with the [employer] AI 3-D. TISSUE DENSITY: There are scattered areas of fibroglandular density. (BI-RADS category B) FINDINGS: RIGHT BREAST: No suspicious mass. No suspicious calcification. No distortion. No additional suspicious right breast findings LEFT BREAST: No suspicious mass. No suspicious calcification. No distortion. No additional suspicious left breast findings Procedure Note Jasson Hooker MD - 09/16/2024 EXAM: SCREENING MAMMOGRAPHY, BILATERAL HISTORY: SCREENING. Cousin with history of breast cancer. COMPARISON: 09/13/23, 09/10/22, 09/08/21, 09/05/20 TECHNIQUE: Synthesized CC and MLO projections of each breast.Tomosynthesis of each breast in the CC and MLO projections. ADDITIONAL IMAGING: None Computer-aided detection was employed with the [employer]theradio AI 3-D. TISSUE DENSITY: There are scattered areas of fibroglandular density.(BI-RADS category B) FINDINGS: RIGHT BREAST: No suspicious mass. No suspicious calcification. No distortion. Noadditional suspicious right breast findings LEFT BREAST: No suspicious mass. No suspicious calcification. No distortion. Noadditional suspicious left breast findings IMPRESSION: No mammographic evidence of malignancy. No suspicious interval change. A negative mammogram in the presence of a clinically suspicious palpableabnormality does not preclude the possibility of malignancy or alter theindications for biopsy. ASSESSMENT: BI-RADS 1: NEGATIVE RECOMMENDATION(S): 1: Routine screening mammogram BILATERAL in 1 year. [facility]amm[facility] location[facility] at [address], [address] -------- FINAL REPORT -------- Dictated By: Jasson Hooker Dictated Date: 09/16/2024 17:17 ET Assigned Physician: Jasson Hooker Reviewed and Electronically Signed By: Jasson Hooker Signed Date: 09/16/2024 17:21 ET Workstation ID: [id number] Transcribed By: Self Edit Transcribed Date: 09/16/2024 17:17 ET us Self Referral Sppl IMG BI PROCEDURES Final Resul t from Last 3 Months Insurance MEDICA[place] - [place] MEDICARE Care Teams Quality Assurance Project Manager Relationship Specialty Start Date End Date Shane Ag MD PCP - General Internal Medicine 07/31/24
[2024-10-16 11:01] VITALS: BP 150/100
== END 2024-10-16 11:06 | disposition home or self-care (01) ==
PROVIDERS: PCP Internal Medicine; Visit Provider Internal Medicine
DX: I10 Essential (primary) hypertension (principal); E66.9 Obesity, unspecified; Z68.34 Body mass index [BMI] 34.0-34.9, adult; E78.00 Pure hypercholesterolemia, unspecified; M47.812 Spondylosis without myelopathy or radiculopathy, cervical region; M17.0 Bilateral primary osteoarthritis of knee; M79.7 Fibromyalgia

== ENCOUNTER → 2024-10-16 09:55 | Outpatient (BNVA) | payer MEDICARE, MEDICAID, SELFPAY | PROVIDERS: PCP Internal Medicine; Visit Provider Internal Medicine | DX: I10 Essential (primary) hypertension (principal); E78.00 Pure hypercholesterolemia, unspecified; M47.812 Spondylosis without myelopathy or radiculopathy, cervical region; M17.0 Bilateral primary osteoarthritis of knee; M79.7 Fibromyalgia; E66.9 Obesity, unspecified; Z68.34 Body mass index [BMI] 34.0-34.9, adult; Z71.3 Dietary counseling and surveillance | CPT/HCPCS: 96127; 99212 ==

== ENCOUNTER 2025-01-21 06:52 | Outpatient (REF) | payer MEDICARE, MEDICAID, SELFPAY ==
--- OUTSIDE RECORDS SUMMARY | 2025-01-21 06:55 | XMS_ITS | Clinical Summary ---
Author Organization [facility] Address [address] [address] Phone Care Team Providers Care Wine Merchant Name Role Phone Jay Jarquin MD Primary Care Provider [phone] Allergies Active Allergy Reactions Criticality Noted Date [...] 09/04/2019 PAP SMEAR 05/06/2023 05/05/2018, 05/05/2018, 08/28/1999 INFLUENZA VACCINE (#1) 2024 0, 11/19/2018, 10/11/2017 COVID-19 VACCINE (2 - 2024-2 6 season) 2024 06/17/2020 SCREENING FOR DIABETES 07/12/2025 3, 10/08/2019 LIPID PANEL 12/28/2026 12/28/2021 Adult Td,Tdap Booster 09/15/2029 09/16/2019 RSV VACCINE (1 - 1-dose 75+ series) 01/21/2040 HEPATITIS A VACCINES Aged Out No long [...] PM EST Weight gain COMPREHENSIVE METABOLIC PANEL (CMP) Routine 10/08/2019 9:27 AM EDT Hormone replacement therapy (postmenopausal) Nocturnal polyuria HM MAMMOGRAPHY Routine 09/04/2019 PAP TEST Routine 05/05/2018 12:00 AM EDT from Last 3 Months or Most Recently Relevant to Health Maintenance Results * Lipid panel (12/28/2021 12:11 PM EST) HDL 79 35 - 100 mg/dL [facility] CHOLESTEROL 180 <200 mg/dL [facility] TRIGLYCERIDES 46 40 - 150 mg/dL [facility] LDL 92 50 - 129 mg/dL [facility] CARDIAC RISK RATIO 2.3 0.0 - 5.0 [facility] NON-HDL CHOLESTEROL 101 mg/dL [facility] Comment:NCEP ATP III guideli gal suggest a non-HDL cholesterol goal 30 mg/dl higher than the patient-specific LDL goal. 12/28/2021 12:1 1 PM EST 12/28/2021 4:19 PM EST us Summer Wong MD LAB BLOOD BKR ORDERAB LES Final Result [address] [address] * (ABNORMAL) Comprehensive metabolic panel (10/08/2019 9:27 AM EDT) SODIUM 139 133 - 146 mmol/L [facility] POTASSIUM 3.9 3.3 - 5.1 mmol/L [facility] CHLORIDE 99 96 - 108 mmol/L [facility] CO2 25 21 - 35 mmol/L [facility] BUN 22(H) 6 - 19 mg/dL [facility] CREATININE 0.80 0.5 - 1.5 mg/dL [facility] GLUCOSE 96 70 - 99 mg/dL [facility] ALBUMIN 4.6 3.9 - 4.8 g/dL [facility] TOTAL PROTEIN 7.9 6.5 - 8.0 g/dL [facility] CALCIUM 9.9 8.4 - 10.3 mg/dL [facility] ALKALINE PHOSPHATASE 63 39 - 117 U/L [facility] TOTAL BILIRUBIN 0.4 0.0 - 1.2 mg/dL [facility] AST 24 0 - 37 U/L [facility] ALT 18 0 - 40 U/L [facility] GLOBULIN 3.3 1 - 4.8 g/dL [facility] EGFR 84 >59 mL/min/1.7 3m2 [facility] Comment:Estimated glomerular filtration rate calculated using the CKD-EPI equation. ANION GAP 19 10 - 20 mmol/L [facility] Blood 10/08/2019 9:27 AM EDT 10/08/2019 9:31 AM EDT us Madhu Zhao MD LAB BLOOD BKR ORDERABLES Final Result [address] [address] * HM MAMMOGRAPHY FOR RESULT ENTRY ONLY (09/04/2019) us Brigitte Fakl MD HEALTH MAINTENANCE Final Resul t * Pap Smear (05/05/2018 12:00 AM EDT) 05/05/2018 05/06/2018 3:1 3 PM EDT Narrative SEE NARRATIVE - 05/09/2018 9:52 AM EDT [address] [address] Bark Press Operator: Ariella Duffy MD GEOPHYSICS PROFESSOR Cytology Report FINAL DIAGNOSIS A. PAP SMEAR [...] 52, 56, 58, 59, 66, 68) by [employer] On[employer]arity HR-HPV analysis. Clinical correlation is advised. This HPV test was performed at [facility], [address] [place] [address]. This test has been FDA approved for SurePath cervical cytology specimens. The accuracy and precision of this test for all other specimen sources has been verified in the Cytopathology Laboratory of the [facility] and has not been cleared or approved by the U.S. Food and Drug Administration. Clinical correlation is advised. CLINICAL HISTORY Date of Last Menstrual Period: Not Provided Menstrual History: Keesha-Menopausal Other Clinical Conditions: Screening Pap SPECIMEN SOURCE A: PAP SMEAR (SUREPATH) CE Patient Name: JASMINA FAYE : 1965 (Age: 53) Sex: F Institution: [facility] Location: [facility] Date of Collection: 05/05/2018 Date of Reported: 05/09/2018 09:52 Results to: Sanjuanita Maguire MD Sanjuanita Maguire MD CYTOLOGY ORDERABLES Final Result SEE NARRATIVE from Last 3 Months or Most Recently Relevant to Health Maintenance [facility] [employer] MED[facility] PART A & [place] PART [place] A & B Care Teams Wine Merchant Relationship Specialty Start Date End Date Jay Jarquin MD [address] [place] [address] [place] [address] PCP - General Internal Medicine 11/03/21 Additional Source Comments The information contained in this document represents components of the legal health record. It is not the complete legal health record.[facility]
--- OUTSIDE RECORDS SUMMARY | 2025-01-21 06:55 | XMS_ITS | Clinical Summary ---
Author Organization [facility] Address [address] [place] [address] Phone Care Team Providers Care Noise Tester Name Role Phone Shane Ag MD Primary Care Provider Surgical History Surgery Date Site/Laterality Comments STEREOTACTIC [...] Health Maintenance Due Date Last Done Comments Colorectal Cancer Screening: Colonoscopy 1965 DTaP,Tdap,and Td Vaccines (1 - Tdap) 01/21/1984 Hepatitis B Vaccines (1 of 3 - 19+ 3-dose series) 01/21/1984 Cervical Cancer Screening: Pap Smear 1986 Pneumococcal Vaccine: 50+ Years (1 of 1 - PCV) 2015 Zoster Vaccines (1 of 2) 2015 HIV Screening 2022 Hepatitis C Screening 2022 Medicare Annual Wellness Visit 2022 Social Influencers of Health Screening 2022 Depression Screening 02/19/2024 COVID-19 Vaccine ( - 2024- season) 2024 Influenza Vaccine (#1) 2024 Breast Cancer Screening 09/16/2026 09/17/19 25, 09/13/2023, 09/10/2022, Additional history exists Cholesterol Screening [...] for breast cancer from Last 3 Months or Most Recently Relevant to Health Maintenance Results * MG Mammo Digital Screening w [...] year. [facility]amm[facility] at [address], [address] -------- FINAL REPORT -------- Dictated By: Jasson Hooker Dictated Date: 09/16/2024 17:17 ET Assigned Physician: Jasson Hooker Reviewed and Electronically Signed By: Jasson Hooker Signed Date: 09/16/2024 17:21 ET Workstation ID: [id number] Transcribed By: Self Edit Transcribed Date: 09/16/2024 17:17 ET Narrative 09/16/2024 5:21 PM EDT EXAM: SCREENING MAMMOGRAPHY, BILATERAL HISTORY: SCREENING. Cousin with history of breast cancer. COMPARISON: 09/13/23, 09/10/22, 09/08/21, 09/05/20 TECHNIQUE: Synthesized CC and MLO projections of each breast. Tomosynthesis of each breast in the CC and MLO projections. ADDITIONAL IMAGING: None Computer-aided detection was employed with the [employer] AI 3-D. TISSUE DENSITY: There are scattered areas of fibroglandular density. (BI-RADS category B) FINDINGS: RIGHT BREAST: No suspicious mass. No suspicious calcification. No distortion. No additional suspicious right breast findings LEFT BREAST: No suspicious mass. No suspicious calcification. No distortion. No additional suspicious left breast findings Procedure Note Jasson Hooker, MD - 09/16/2024 EXAM: SCREENING MAMMOGRAPHY, BILATERAL HISTORY: SCREENING. Cousin with history of breast cancer. COMPARISON: 09/13/23, 09/10/22, 09/08/21, 09/05/20 TECHNIQUE: Synthesized CC and MLO projections of each breast.Tomosynthesis of each breast in the CC and MLO projections. ADDITIONAL IMAGING: None Computer-aided detection was employed with the [employer] AI 3-D. TISSUE DENSITY: There are scattered [...] year. [facility]amm[facility] location: [facility] [address] [place], [address] -------- FINAL REPORT -------- Dictated By: Jasson Hooker Dictated Date: 09/16/2024 17:17 ET Assigned Physician: Jasson Hooker Reviewed and Electronically Signed By: Jasson Hooker Signed Date: 09/16/2024 17:21 ET Workstation ID: [id number] Transcribed By: Self Edit Transcribed Date: 09/16/2024 17:17 ET us Self Referral Sppl IMG BI PROCEDURES Final Resul t from Last 3 Months or Most Recently Relevant to Health Maintenance Insurance [place] - [place] MEDICARE Care Teams Noise Tester Relationship Specialty Start Date End Date Shane Ag MD PCP - General Internal Medicine 07/31/24
[2025-01-21 07:18] LABS: MANUAL DIFF FLAG NO
[2025-01-21 08:00] LABS: Hematocrit 35.0 % (37.0-47.0); Hemoglobin 11.9 g/dl (12.0-16.0); Imm Gran Abs Auto 0.01 X10*3/uL (0.00-0.03); Imm Gran Pct Auto 0.1 % (0.0-0.4); Lymphocytes Absolute Auto 2.0 X10*3/uL (1.2-4.9); Mean Corpuscular HGB Conc 34.0 g/dl (31.0-35.0); Mean Corpuscular Hemoglobin 30.6 pg (27.0-33.0); Mean Corpuscular Volume 90.0 fL (80.0-98.0); NRBC Abs Auto 0.000 X10*3/uL (0.0-0.012); NRBC Pct Auto 0.0 /100WBC (0.0-0.2); Platelet Count 314 X10*3/uL (160-400); Red Blood Count 3.89 X10*6/uL (4.20-5.50); White Blood Count 6.8 X10*3/uL (4.8-10.8)
[2025-01-21 08:14] LABS: Appearance Urine Cloudy; Glucose Urine UA Negative (Negative); PH 5.5 (5.0-9.0); Specific Gravity - Urine 1.020 (1.005-1.025); UMIC TRIGGER UACC YES
[2025-01-21 08:20] LABS: UACC Culture Trigger YES
[2025-01-21 08:36] LABS: Alanine Aminotransferase 27 U/L (0-31); Albumin Level 4.5 g/dL (3.5-5.0); Alkaline Phosphatase 40 U/L (39-117); Anion Gap 14 (12-20); Aspartate Amino Transferase 31 U/L (5-31); Blood Urea Nitrogen 31 mg/dL (9-16); Calcium 9.4 mg/dL (8.4-10.2); Carbon Dioxide 23 mmol/L (22-29); Chloride 103 mmol/L (96-108); Cholesterol 168 mg/dL (<200); Estimated Glomerular Filt Rate > 60; HDL Cholesterol 42 mg/dL (>40); Potassium 3.9 mmol/L (3.3-5.1); Sodium 136 mmol/L (135-145); Total Protein 7.9 g/dL (6.5-8.0); Triglycerides 122 mg/dL (<150)
[2025-01-21 09:00] LABS: Folate 17.8 ng/mL (> or = 4.0); Vitamin B12 228 pg/mL (200-900)
[2025-01-25 17:44] LABS: CK-BB None Detected (None Detected); CK-MB 0 % (<5); CK-MM 97 % (95-100); Creatine Kinase Isoenzyme Itrp MACRO CK TYPE 1; Creatine Kinase,Total,Serum 307 U/L (20-243)
== END 2025-01-21 06:53 | disposition home or self-care (01) ==
LOC: HO.LAB 06:52
PROVIDERS: PCP Internal Medicine; Visit Provider Internal Medicine
DX: E53.8 Deficiency of other specified B group vitamins (principal); D64.9 Anemia, unspecified; E78.00 Pure hypercholesterolemia, unspecified; E55.9 Vitamin D deficiency, unspecified; M79.10 Myalgia, unspecified site; R73.9 Hyperglycemia, unspecified; R30.0 Dysuria
CPT/HCPCS: 36415; 80053; 80061; 81001; 81003; 82306; 82552; 82607; 82746; 83036; 84443; 85025; 87086; 87088; 87186

== ENCOUNTER 2025-01-27 13:42 | Outpatient (AMB) | payer MEDICARE, MEDICAID, SELFPAY ==
--- NOTE | 2025-01-27 13:50 | A.OFFPC_ITS ---
Vital Signs 01/27/25 13:51 Height 5 ft 4 in Weight 199 lb BMI 34.2 BP 140/86 H Blood Pressure Location Lt brachial Position Sitting Pulse 79 Pulse Source Pulse Oximeter Pulse Oximetry (%) 98 Oxygen Delivery Method Room Air Intake Visit Reasons: HTN, hyperlipidemia Hackler Doll Wigs Required: No Accompanied by: Self / Same As Patient Allergies Clindamycin HCl Allergy (Intermediate, Uncoded 01/27/25 14:24) blisters on hands dust Allergy (Unknown, Uncoded 01/27/25 14:24) unknown Medication List - Last Reconciled 01/27/25 by Shane Ag MD aspirin 81 mg PO DAILY atorvastatin 20 mg PO DAILY estradiol 2 mg PO DAILY hydrochlorothiazide 25 mg PO DAILY losartan 25 mg PO DAILY metoprolol succinate ER 100 mg PO DAILY norethindrone acetate 5 mg PO DAILY oxycodone ER 20 mg PO Q12H Tobacco use date assessed: 01/27/25 Dental Screening Dental Screen Date: 01/27/25 Did you have a dental visit in the last 12 months?: Yes Did you have a dental problem in the last 6 months where you did not have access to dental care?: No Was dental information given to patient?: Patient has dentist HPI HTN, hyperlipidemia HPI Details - The patient is a 60 year old female wh o comes in today for her follow up visit - She presents with concerns about signi ficant weight gain and its impact on her health, including prediabetes and knee pain. - She has a history of dysmenorrhea star ting at age 15, for which she was prescribed control pills. - She remained on control pills co ntinuously until age 47, when she was taken off them after a hemorrhage from a suspected ruptured ovarian cyst. - Following the cessation of contr ol pills at age 47, she experienced a rapid 30-pound weight gain over approximately one to two months. - A previous trial of control pill s for 30 days resulted in a 17-pound weight loss. - She was taken off the pill again at ag e 53 due to increased health risks, which was followed by another 30-pound weight gain. - She reports a normal weight of 140-145 pounds prior to these events. - The patient is currently on hormone re placement therapy for menopause, including estradiol and an increased dose of progestin to manage bleeding. - She has experienced a 20-pound weight gain in the last year, which she attributes to her senior solutions consultant lowering her estrogen patch dosage. - The patient reports that her increased weight has worsened her knee osteoarthritis and mobility, and she believes it is contributing to her prediabetic status and is trying to get her doctors to start her back on her previous control Rx or something similar in dose so she can get her weight down again - She reports being active, working out, and eating a healthy diet, including a salad with every meal and focusing on protein over carbohydrates. - A few years ago, she saw an endocrinol ogist, Dr. Kunz, who could not determine the cause of her weight issues. - Her current senior solutions consultant is Dr. Sheehan , but she has been seeing a nurse personnel psychologist, Ita Mosley, and has difficulty getting appointments. - She had her follow up labs done last - to discuss her results [facility] Medical History Obesity (BMI 30-39.9) Primary osteoarthritis of knees, bilateral Cervical spondylosis Pure hypercholesterolemia Essential hypertension Menopause Obesity Hyperlipidemia High cholesterol High blood pressure Fibromyalgia Back pain Surgical History No pertinent past surgical history Family History Father No problems noted. Mother No problems noted. Social History Housing: Condominium Alcohol intake: never Tobacco use type: Cigarette e-Cigarette/Vaping Use: Never Used Second Hand Smoke Exposure: No service: No Current occupational status: disabled Gender identity: Female Cognitive needs: No Hearing needs: No Vision needs: No Questionnaire PHQ-9 Over the last 2 weeks, how often have you been bothered by any of the following problems? 1. Little interest or pleasure in doing things: not at all 2. Feeling down, depressed, or hopeless: several days 3. Trouble falling or staying asleep, or sleeping too much: several days 4. Feeling tired or having little energy: several days 5. Poor appetite or overeating: not at all 6. Feeling bad about yourself - or that you are a failure or have let yourself or your family down: several days 7. Trouble concentrating on things, such as reading the newspaper or watching television: not at all 8. Moving or speaking so slowly that other people could have noticed. Or the opposite - being so fidgety or restless that you have been moving around a lot more than usual: not at all 9. Thoughts that you would be better off or of hurting yourself in some way: not at all Total score: 4 Depression Screening Interpretation: Positive Depression Screening Follow-up: Follow-up Visit Requested Depression Screening Done: Yes 34880 - PHQ-9 Billing: Yes Source: Developed by Drs. Madhu Spear, Cyndi Lizarraga, Robby Bonilla and colleagues, with an educational tim from [employer]. Thrive Questionnaire Date Thrive assessed: 01/27/25 I am a: Patient What is your living situation today?: I have a steady place to live Within the past 12 months, did the food you bought not last and you didn't have the money to get more?: Never true Within the past 12 months, did you worry whether your food would run out before you got money to buy more?: Never true Do you have trouble paying for medicines?: No Do you have trouble getting transportation to medical appointments?: No Do you have trouble paying your heating and electricity bill?: No Do you have trouble taking care of your child, family member or friend?: No Do you have trouble with day-to-day activities such as bathing, preparing meals, shopping, managing finances, etc.?: No Are you currently unemployed and looking for a job?: No Are you interested in more education?: No Please select the resources that you would like help with: None Currently or been in a relationship where the following occur: No concerns reported THRIVE Score: 0 AUDIT C Alcohol Use Questionnaire (AUDIT-C) 1. How often do you have a drink containing alcohol?: Never 3. How often do you have six or more drinks on one occasion?: Never Total Score: 0 Score Reviewed/Action Taken: Yes ARIANNE-7 AMB Questionnaire ARIANNE-7 Date ARIANNE - 7 assessed: 01/27/25 Feeling nervous, anxious, or on edge: 1 = Several days Not being able to stop or control worryin = Nearly every day Worrying too much about different things: 3 = Nearly every day Trouble relaxin = Several days Being so restless that it is hard to sit still: 0 = Not at all Becoming easily annoyed or irritable: 1 = Several days Feeling afraid as if something awful might happen: 1 = Several days Total ARIANNE-7 score (0-4 normal; 5-9 mild; 10-14 moderate; 15-21 severe): 10 Source: Developed by Drs. Madhu Spear, Cyndi Lizarraga, Robby Bonilla and colleagues, with an educational tim from [employer]. Review of Systems Const Denies chills, Reports fatigue, Denies fever(s) and Denies headache(s) ENT Denies dysphagia, Denies dizziness, Denies otalgia, Denies headache(s), Denies neck pain, Denies odynophagia and Denies sore throat Card Denies chest pain, Denies palpitations and Denies dyspnea Resp Denies chest congestion, Denies cough and Denies dyspnea GI Denies abdominal pain, Denies constipation, Denies dysphagia, Denies heartburn, Denies diarrhea, Denies nausea, Denies odynophagia and Denies vomiting Denies difficulty voiding, Denies nocturia, Denies dysuria and Denies urinary urgency Musc Denies back pain, Reports myalgias (frequent - due to her fibromyalgia) and Denies neck pain Skin/Breast Denies rash Neuro Denies dizziness and Denies headache(s) Endo Reports fatigue and Denies palpitations Physical exam (Primary Care) Vital Signs: Last Vital Signs Pulse 79 01/27/25 13:51 BP 140/86 H 01/27/25 13:51 Pulse Ox 98 01/27/25 13:51 Oxygen Delivery Method Room Air 01/27/25 13:51 BMI result Body Mass Index 34.2 Tobacco/Smoking Status: Tobacco use Status Tobacco use date assessed 01/27/25 01/27/25 14:02 Tobacco use type Cigarette 01/27/25 14:02 e-Cigarette/Vaping Use Never Used 01/27/25 14:02 PHQ-9: PHQ-9 Score PHQ-9: Total score 4 01/27/25 14:30 Depression Screening Interpretation: Positive Depression Screening Follow-up: Follow-up Visit Requested Thrive Assessment: Date of Thrive Assessment Date Thrive assessed 01/27/25 01/27/25 14:02 Currently or been in a relationship where the following occur: No concerns reported Const General: no acute distress and alert HENMT Ears: TM's normal bilaterally and EAC's normal Throat: Yes posterior oropharynx normal and Yes tonsils normal (no TP congestion) Neck Neck: Yes supple and No lymphadenopathy Thyroid: Thyroid normal Resp Auscultation: clear to auscultation bilaterally, no rales and no wheezes Cardio Rate: regular rate Rhythm: regular rhythm Heart sounds: no murmurs GI Palpation (GI): Soft to palpation and nontender Auscultation: normal bowel sounds General: Yes no CVA tenderness Back/Spine/Pelvis Back: no CVA tenderness Thoracic/Lumbar Spine: No lumbar spinal tenderness Skin Rashes: no rashes Extrem General: Yes no clubbing, cyanosis or edema Results Reviewed Results Reviewed: Laboratory Tests 01/21/25 01/21/25 07:06 07:15 WBC 6.8 Hgb 11.9 L Hct 35.0 L Plt Count 314 Sodium 136 Potassium 3.9 Creatinine 0.93 Estimated GFR > 60 Fasting Glucose 92 Hemoglobin A1c % 6.0 Calcium 9.4 D AST 31 ALT 27 Total Creatine Kinase 307 H Triglycerides 122 Cholesterol 168 LDL Cholesterol, Calc 102 H HDL Cholesterol 42 Vitamin B12 228 25-OH Vitamin D Total 58.2 TSH 1.42 Ur Specific [place] 1.020 Urine Protein 30 (1+) H Urine Glucose (UA) Negative Urine Blood Small (1+) H Urine Nitrite Negative Ur Leukocyte Esterase Moderate (2+) H Coding Level of Care Code Est Pt Level 4 (78952) Diagnoses Essential hypertension I10 Pure hypercholesterolemia E78.00 Impaired fasting glucose R73.01 Cervical spondylosis M47.812 Primary osteoarthritis of knees, bilateral M17.0 Fibromyalgia M79.7 Obesity (BMI 30-39.9) E66.9 Additional Codes PHQ-9 - 12034 - PHQ-9 Billing: Yes ([id number]) Assessment & Plan Assessment & Plan (1) Essential hypertension: Code(s): I10 - Essential (primary) hypertension Category: Medical Plan: Reinforced low sodium diet - goal is systolic BP of at least 130 mm or less Continue HCTZ 25 mg QD, Metoprolol ER 100 mg QD and Losartan 25 mg QD She is reminded to continue monitoring her blood pressure regularly (2) Pure hypercholesterolemia: Code(s): E78.00 - Pure hypercholesterolemia, unspecified Category: Medical Plan: Results of her labs done last week reviewed and discussed with patient Reinforced low cholesterol diet Continue Atorvastatin 20 mg QD Will have patient recheck her labs and fasting lipids in 3 months for follow up (3) Impaired fasting glucose: Code(s): R73.01 - Impaired fasting glucose Category: Medical Plan: Her HgbA1c was at 6.0% on her recent labs Reinforced low calorie/low carb diet (4) Cervical spondylosis: Code(s): M47.812 - Spondylosis without myelopathy or radiculopathy, cervical region Category: Medical Plan: Continue Oxycodone ER 20 mg Q 12 hours for pain She continues to follow up with Dr. Sheehan at [facility] regularly for continuing management of her chronic neck pain and generalized pain syndrome (5) Primary osteoarthritis of knees, bilateral: Code(s): M17.0 - Bilateral primary osteoarthritis of knee Category: Medical Plan: Patient reports being advised by orthopedics a couple of years ago that she has significant osteoarthritis of both knees and will require arthroplasty of both knees at some point Follow up with orthopedics as scheduled or as needed (6) Fibromyalgia: Code(s): M79.7 - Fibromyalgia Category: Medical Plan: Patient is encouraged to continue to try to stay active and exercise regularly as tolerated to help manage her fibromyalgia symptoms She is following up with [facility] regularly for pain management (7) Obesity (BMI 30-39.9): Code(s): E66.9 - Obesity, unspecified Category: Medical Plan: Reinforced diet/exercise as tolerated/lose weight Patient's significant weight gain is noted to be closely correlated with the cessation of long-term control pill use. A discussion was held about the patient's desire to try a different hormone, Premarin, to see if it would induce weight loss. While acknowledging the patient's experience with weight loss on control pills, prescribing them or other hormones for weight management was declined due to the associated health risks like stroke, blood clots, heart attack, and uterine cancer, especially with age. It was recommended that she discuss any changes to her hormone replacement therapy with her senior solutions consultant, as it is outside the scope of this practice. A referral to a weight order management specialist was suggested as another option. Plan I reviewed the patient's recent lab results, which were largely reassuring, though I noted a borderline Hemoglobin A1c of 6.0% and a low-normal vitamin B12 level. We had an extensive discussion about her history of significant weight gain following the cessation of long-term control pill use. I acknowledged her belief that her body has a strong dependency on these hormones for weight regulation, as evidenced by her past experience of losing 17 pounds in 30 days after restarting the pill. The patient requested a trial of a different hormone replacement, Premarin, to see if it could help with weight loss. I explained that while I understand her frustration, I could not prescribe this or other hormones for weight management due to the significant health risks involved, particularly as she gets older. I detailed the increased risks of stroke, blood clots, heart attack, and uterine and ovarian cancer associated with hormone therapy. I emphasized that managing hormone replacement is the specialty of her senior solutions consultant, and I would not want to interfere with their plan of care. However, I did offer to provide a one-time refill in an urgent situation if her senior solutions consultant were unavailable. I advised her to discuss these concerns and her request for a medication change with her senior solutions consultant and recommended she also consider seeing a weight order management specialist. I requested she have her senior solutions consultant send a report of their plan. We will follow up in three months. Follow up in 3 months Orders: Orders 2 Hemoglobin A1c 3 Months R73.01 - Impaired fasting glucose Vitamin D 25-OH Total 3 Months E55.9 - Vitamin D deficiency, unspecified Complete Blood Count Auto Diff 3 Months D64.9 - Anemia, unspecified Comprehensive [place]. Panel Fast 3 Months E78.00 - Pure hypercholesterolemia, unspecified Lipid Panel 3 Months E78.00 - Pure hypercholesterolemia, unspecified TSH reflex Free T4 3 Months E78.00 - Pure hypercholesterolemia, unspecified UA CC w/rflx Micro + Cult 3 Months R30.0 - Dysuria Vitamin B12 and Folate 3 Months E53.8 - Deficiency of other specified B group vitamins Medications: Discontinued noreth-ethinyl estradiol-iron 0.4mg-35mcg(21) and 75 mg (7) ([place] Fe) Discontinued Reason: Patient no longer taking 1 tab PO DAILY 84 tabs 0RF
[2025-01-27 13:51] VITALS: BP 140/86; PULSE 79; O2SAT 98; BMI 34.2
--- OUTSIDE RECORDS SUMMARY | 2025-01-27 21:15 | XMS_ITS | Clinical Summary ---
Author Organization [facility] Address [address] [address] Phone Care Team Providers Care Hotel Maintenance Worker Name Role Phone Jay Jarquin MD Primary Care Provider [phone] Allergies Active Allergy Reactions Criticality Noted Date [...] EST) HDL 79 35 - 100 mg/dL [facility] CHOLESTEROL 180 <200 mg/dL [facility] TRIGLYCERIDES 46 40 - 150 mg/dL [facility] LDL 92 50 - 129 mg/dL [facility] CARDIAC RISK RATIO 2.3 0.0 - 5.0 [facility] NON-HDL CHOLESTEROL 101 mg/dL [facility] Comment:NCEP ATP III guideli gal suggest a non-HDL cholesterol goal 30 mg/dl higher than the patient-specific LDL goal. 12/28/2021 12:1 1 PM EST 12/28/2021 4:19 PM EST us Summer Wong MD LAB BLOOD BKR ORDERAB LES Final Result [address] [address] * (ABNORMAL) Comprehensive metabolic panel (10/08/2019 9:27 AM EDT) SODIUM 139 133 - 146 mmol/L [facility] POTASSIUM 3.9 3.3 - 5.1 mmol/L [facility] CHLORIDE 99 96 - 108 mmol/L [facility] CO2 25 21 - 35 mmol/L [facility] BUN 22(H) 6 - 19 mg/dL [facility] CREATININE 0.80 0.5 - 1.5 mg/dL [facility] GLUCOSE 96 70 - 99 mg/dL [facility] ALBUMIN 4.6 3.9 - 4.8 g/dL [facility] TOTAL PROTEIN 7.9 6.5 - 8.0 g/dL [facility] CALCIUM 9.9 8.4 - 10.3 mg/dL [facility] ALKALINE PHOSPHATASE 63 39 - 117 U/L [facility] TOTAL BILIRUBIN 0.4 0.0 - 1.2 mg/dL [facility] AST 24 0 - 37 U/L [facility] ALT 18 0 - 40 U/L [facility] GLOBULIN 3.3 1 - 4.8 g/dL [facility] EGFR 84 >59 mL/min/1.7 3m2 [facility] Comment:Estimated glomerular filtration rate calculated using the CKD-EPI equation. ANION GAP 19 10 - 20 mmol/L [facility] Blood 10/08/2019 9:27 AM EDT 10/08/2019 9:31 AM EDT us Madhu Zhao MD LAB BLOOD BKR ORDERABLES Final Result [address] [address] * HM MAMMOGRAPHY FOR RESULT ENTRY ONLY (09/04/2019) us Brigitte Falk MD HEALTH MAINTENANCE Final Resul t * Pap Smear (05/05/2018 12:00 AM EDT) 05/05/2018 05/06/2018 3:1 3 PM EDT Narrative SEE NARRATIVE - 05/09/2018 9:52 AM EDT [address] [address] Seed Sorter: Ariella Duffy MD LONG LINES OPERATOR Cytology Report FINAL DIAGNOSIS A. PAP SMEAR [...] 52, 56, 58, 59, 66, 68) by [employer] [facility] [employer] HR-HPV analysis. Clinical correlation is advised. This HPV test was performed at [facility], [address] [place] [address]. This test has been FDA approved for [facility] cervical cytology specimens. The accuracy and precision of this test for all other specimen sources has been verified in the Cytopathology Laboratory of the [facility] and has not been cleared or approved by the U.S. Food and Drug Administration. Clinical correlation is advised. CLINICAL HISTORY Date of Last Menstrual Period: Not Provided Menstrual History: Keesha-Menopausal Other Clinical Conditions: Screening Pap SPECIMEN SOURCE A: PAP SMEAR (SUREPATH) CE Patient Name: JASMINA FAYE : 1965 (Age: 53) Sex: F Institution: [facility] Location: [facility] Date of Collection: 05/05/2018 Date of Reported: 05/09/2018 09:52 Results to: Sanjuanita Maguire MD Snajuanita Maguire MD CYTOLOGY ORDERABLES Final Result SEE NARRATIVE from Last 3 Months or Most Recently Relevant to Health Maintenance [facility] A & [place] & [place] & [place] & [place] & [place] & [place] & [place] A & B Care Teams Hotel Maintenance Worker Relationship Specialty Start Date End Date Jay Jarquin MD [address] [place] [address] [place] [address] PCP - General Internal Medicine 11/03/21 Additional Source Comments The information contained in this document represents components of the legal health record. It is not the complete legal health record.[facility]
--- OUTSIDE RECORDS SUMMARY | 2025-01-27 21:16 | XMS_ITS | Clinical Summary ---
Author Organization [facility] Address [address] [place] [address] Phone Care Team Providers Care Guest Associate Name Role Phone Shane Ag MD Primary [...] on file Sexual Orientation Not on file Last Filed Vital Signs [...] DTaP,Tdap,and Td Vaccines (1 - Tdap) 01/21/1984 Cervical Cancer Screening: Pap Smear 1986 Pneumococcal Vaccine: 50+ Years (1 of 1 - PCV) 2015 Zoster Vaccines (1 of 2) 2015 HIV Screening 2022 Hepatitis C Screening 2022 Medicare Annual Wellness Visit 2022 Social Influencers of Health Screening 2022 Depression Screening 02/19/2024 COVID-19 Vaccine (1 - season) 2024 Influenza Vaccine (#1) 2024 Breast [...] patient's age to complete this topic Hepatitis B Vaccines Aged Out No long er eligible [...] year. [facility] [address], [address] -------- FINAL REPORT -------- Dictated By: Jasson Hooker Dictated Date: 09/16/2024 17:17 ET Assigned Physician: Jasson Hooker Reviewed and Electronically Signed By: Jasson Hooker Signed Date: 09/16/2024 17:21 ET Workstation ID: [id number] Transcribed By: Self Edit Transcribed Date: 09/16/2024 17:17 ET Narrative 09/16/2024 5:21 PM EDT EXAM: SCREENING MAMMOGRAPHY, BILATERAL HISTORY: SCREENING. Cousin with history of breast cancer. COMPARISON: 09/13/23, 09/10/22, 09/08/21, 09/05/20 TECHNIQUE: Synthesized CC and MLO projections of each breast. Tomosynthesis of each breast in the CC and MLO projections. ADDITIONAL IMAGING: None Computer-aided detection was employed with the [employer] AI 3-D. TISSUE DENSITY: There are scattered [...] None Computer-aided detection was employed with the [employer] AI 3-D. TISSUE DENSITY: There are scattered [...] year. Mamm[facility] location: [facility] [address] [place], [address] -------- FINAL REPORT -------- Dictated By: Jasson Hooker Dictated Date: 09/16/2024 17:17 ET Assigned Physician: Jasson Hooker Reviewed and Electronically Signed By: Jasson Hooker Signed Date: 09/16/2024 17:21 ET Workstation ID: [id number] Transcribed By: Self Edit Transcribed Date: 09/16/2024 17:17 ET us Self Referral Sppl IMG BI PROCEDURES Final Resul t from Last 3 Months or Most Recently Relevant to Health Maintenance Insurance MEDICAID - [place] MEDICARE Care Teams Guest Associate Relationship Specialty Start Date End Date Shane Ag MD PCP - General Internal Medicine 07/31/24
== END 2025-01-27 14:59 | disposition home or self-care (01) ==
LOC: HO.HMCH 13:43
PROVIDERS: PCP Internal Medicine; Visit Provider Internal Medicine
DX: I10 Essential (primary) hypertension (principal); E66.9 Obesity, unspecified; Z68.34 Body mass index [BMI] 34.0-34.9, adult; E78.00 Pure hypercholesterolemia, unspecified; R73.01 Impaired fasting glucose; M47.812 Spondylosis without myelopathy or radiculopathy, cervical region; M17.0 Bilateral primary osteoarthritis of knee; M79.7 Fibromyalgia

== ENCOUNTER → 2025-01-27 13:42 | Outpatient (BNVA) | payer MEDICARE, MEDICAID, SELFPAY | PROVIDERS: PCP Internal Medicine; Visit Provider Internal Medicine | DX: I10 Essential (primary) hypertension (principal); E78.00 Pure hypercholesterolemia, unspecified; R73.01 Impaired fasting glucose; M47.812 Spondylosis without myelopathy or radiculopathy, cervical region; M17.0 Bilateral primary osteoarthritis of knee; M79.7 Fibromyalgia; E66.9 Obesity, unspecified; Z13.31 Encounter for screening for depression; Z13.39 Encounter for screening examination for other mental health and behavioral disorders | CPT/HCPCS: 96127; 99212 ==